=== PATIENT | female | born 1995 | race Caucasian/White ===

== ENCOUNTER 2016-10-05 19:36 | Emergency (ER) | payer SELFPAY ==
[~2016-10-05 19:36] MED LIST: ACET500C5 PO; CALC-600 PO; CEPH-443 PO; IRON18TA PO; PREN1TAB49 PO; SSD1C20 TOP
== END 2016-10-05 19:59 | disposition left against medical advice (07) ==
LOC: E/R 19:36
DX: Z53.21 Procedure and treatment not carried out due to patient leaving prior to being seen by health care provider (principal)

== ENCOUNTER 2016-10-05 19:54 | Outpatient (CLI) | payer MEDICAID ==
[~2016-10-05] VITALS: Ht 149.9 cm; Wt 61.0 kg
[2016-10-05 20:02] VITALS: Ht 149.9 cm; Wt 61.0 kg
[2016-10-05 20:30] VITALS: BP 106/54; PULSE 86; RESP 18
[2016-10-05 21:14] LABS: ADD UMIC YES; URINE BILIRUBIN (Dip) NEGATIVE (NEGATIVE); URINE BLOOD (Dip) NEGATIVE (NEGATIVE); URINE COLOR LT. YELLOW (YELLOW); URINE GLUCOSE (Dip) NEGATIVE (NEGATIVE); URINE KETONES (Dip) NEGATIVE (NEGATIVE); URINE LEUKOCYTE ESTERASE (Dip) 1+ (NEGATIVE); URINE NITRITE (Dip) NEGATIVE (NEGATIVE); URINE TOTAL PROTEIN (Dip) NEGATIVE (NEGATIVE); URINE UROBILINOGEN (Dip) 0.2 E.U./dL (0.1-1.0)
--- NOTE | 2016-10-05 21:24 | RADRPT ---
PROCEDURE: US OB and ultrasound of the cervix. CLINICAL INDICATION: Size and dates , labor TECHNIQUE: Multiple sonographic images of the pelvis and gravid uterus were obtained. The images were reviewed on a PACS workstation. In addition transvaginal images of the cervix were obtained. COMPARISON: 08/30/2016 FINDINGS: The cervix is closed with a length of 5.6 cm. There is a single viable intrauterine gestation. Cardiac activity is present with 142 beats per min sara. There is a breech presentation. The placenta is posterior. There is no evidence of partial placenta previa. The placenta edge is se en 2 mm away from the cervix. Measurements were made in order to determine age. The results are as follows: BPD =4.6 cm HC =16.9 cm AC =15.4 cm FL =3.1 cm Estimated gestational age of approximately 20 weeks and 0 days based on ultrasound measurements. Clinical age: 19 weeks and 4 days. The estimated date of delivery is 02/22/17, based on ultrasound measurements. The EFW = 329 g, 73.6%, based on LMP age. RPTAT: AA IMPRESSION: Single viable intrauterine gestation of approximately 20 weeks and 0 days based on ultrasound measu rements. Posterior placenta with partial placenta previa. .Seth Fabian MD, Date Time Electronically viewed and signed by .Seth Fabian MD, MD on 10/05/2016 21:23 .S/
[2016-10-05 21:31] LABS: BACTERIA,URINE MODERATE; SQUAMOUS EPITHELIAL CELL,UR MANY; URINE RBCS 0-2 /HPF (0)
--- NOTE | 2016-10-05 22:18 | TRIAGE ---
OB Triage Datetime Report Generated by CPN: 10/05/2016 22:18 Datetime: 10/05/2016 20:35 Time of Arrival: 10/05/2016 19:52 EGA: 19.4 Arrived By: Wheelchair Arrived From: Home Chief Complaint: w/ c/o "constant lower abdominal cramping" today and hx UTI 2 wks ago Movement: Present Contractions: Irregular Time Contractions Began: 10/05/2016 14:00 Contractions: constant Rupture of Membranes: Denies Vaginal Bleeding: None Vaginal Discharge: Denies Recent Sexual Intercouse: Denies Abdominal Trauma: Not Applicable Patient Complaints: Cramping Time Provider Notified: 10/05/2016 20:30 Provider Notified: Dr Landaverde Initial Plan: EFM,UA,EFW,CVL Datetime: 10/05/2016 20:30 Stage of : OB Triage Labor Evaluation Frequency: 0 Monitor Mode: External Resting Tone [place]: Relaxed Datetime: 10/05/2016 20:09 Maternal Assessment Level of Consciousness: Fully Conscious Headache: Denies Blurred Vision: No Nausea/Vomiting: Denies RUQ Epigastric Pain: Denies Facial Edema: None Labor Evaluation Frequency: placed Monitor Mode: External Resting Tone [place]: Relaxed Heart Rate Monitor Mode: Doppler Comments: FHT 145 Pain Assessment Pain Scale: 7 Pain Presence: Intermittent Pain Type: Cramping Pain Location: Abdomen Datetime: 10/05/2016 20:00 Vaginal Exam Membrane Status: Intact
--- NOTE | 2016-10-05 23:59 | QN ---
Documentation Comment 20-year-old with IUP at 19 weeks and 4 days with care with Dr. Gray presented with complaining of cramping. She also complaining of lower abdominal and low back pain. Denies any leaking of fluid, vaginal bleeding, denies any dysuria fever or chills. GA: A&O, NAD Abdomen: soft, Non tender, Gravid. No CVA Extremities: no calf tenderness, no click, no edema Ultrasound: GA 19 weeks adn 4 days, EFW: 73 % 2 mm marginal placenta. PROCEDURE: US OB and ultrasound of the cervix. CLINICAL INDICATION: Size and dates , labor TECHNIQUE: Multiple sonographic images of the pelvis and gravid uterus were obtained. The images were reviewed on a PACS workstation. In addition transvaginal images of the cervix were obtained. COMPARISON: 08/30/2016 FINDINGS: The cervix is closed with a length of 5.6 cm. There is a single viable intrauterine gestation. Cardiac activity is present with 142 beats per minute. There is a breech presentation. The placenta is posterior. There is no evidence of partial placenta previa. The placenta edge is seen 2 mm away from the cervix. Measurements were made in order to determine age. The results are as follows: BPD = 4.6 cm HC = 16.9 cm AC = 15.4 cm FL = 3.1 cm Estimated gestational age of approximately 20 weeks and 0 days based on ultrasound measurements. Clinical age: 19 weeks and 4 days. The estimated date of delivery is 02/22/17, based on ultrasound measurements. The EFW = 329 g, 73.6%, based on LMP age. RPTAT: AA IMPRESSION: Single viable intrauterine gestation of approximately 20 weeks and 0 days based on ultrasound measurements. Posterior placenta with partial placenta previa. .Seth Fabian MD, MD Date Time Electronically viewed and signed by .Seth Fabian MD, MD on 10/05/2016 21: 23 .S/ CC: CHRISTIN GIBBS MD Assessment: 1- IUP at 19 weeks and 4 days low back pain, likely musculoskeletal Cramps. due to dehydration. resolved Patient felt improvement. No evidence of PPROM or PTL DC home Follow up next day with her Ob clinic Continue hydration RTC if recurrence of symptoms or for any other concerns. CHRISTIN GIBBS MD Oct 05, 2016 23:59
== END 2016-10-05 22:12 | disposition home or self-care (01) ==
LOC: OBT 19:54 → L-D 19:56 → OBT 22:12
PROVIDERS: ATTEND Obstetrics & Gynecology
DX: O26.892 Other specified pregnancy related conditions, second trimester (principal); M54.5 Low back pain; R10.30 Lower abdominal pain, unspecified; E86.0 Dehydration; Z3A.19 19 weeks gestation of pregnancy
CPT/HCPCS: 76815; 76817; 81001; Z7500; 81003; G0463

== ENCOUNTER 2016-12-20 16:05 | Outpatient (CLI) | payer MEDICAID ==
[~2016-12-20] VITALS: Ht 149.9 cm; Wt 69.9 kg
[~2016-12-20 16:05] MED LIST changes: -ACET500C5 PO; -CEPH-443 PO; -SSD1C20 TOP
[2016-12-20 16:19] VITALS: Ht 149.9 cm; Wt 69.9 kg
--- NOTE | 2016-12-20 17:17 | RADRPT ---
PROCEDURE: US biophysical profile and transvaginal sonography of the cervix. CLINICAL INDICATION: Vaginal bleeding. TECHNIQUE: Multiple sonographic images of the uterus were obtained. Transvaginal sonograp hy of the cervix was also performed. The images were reviewed on a PACS workstation. COMPARISON: No prior studies are available for comparison. FINDINGS: There is a single live intrauterine gestation. heart rate is 146 beats per minute. The position is cephalic. The placenta is fundal grade 1 with no abruption or previa. The SKYLAR is 12.7 cm. (Normal = 5-20 cm.) Transvaginal ultrasound demonstrate cervical length of 4.0 cm. Breathing Movement: 2 Gross Body Movement: 2 Tone: 2 Qualitative Amniotic Fluid Volume: 2 TOTAL: 8 IMPRESSION: 1. The biophysical score is 8/8. 2. Cervical length is 4.0 cm. RPTAT: QQ .Jarad Ewing MD, MD Date Time Electronically viewed and signed by .Jarad Ewing MD, on 12/20/2016 17:17 .R/
[2016-12-20 17:22] LABS: ADD SCAN DIFF NO
[2016-12-20 17:24] LABS: ABNORMAL IP MESSAGE 1; BASOPHIL # 0.1 10^3/ul (0.0-0.1); BASOPHILS % 0.4 % (0.0-2.0); EOSINOPHILS # 0.2 10^3/ul (0.0-0.5); EOSINOPHILS % 1.4 % (0.0-7.0); HEMOGLOBIN 12.5 g/dl (12.0-16.0); LYMPHOCYTES # 2.9 10^3/ul (0.8-2.9); LYMPHOCYTES % 21.5 % (15.0-51.0); MEAN CORPUSCULAR HEMOGLOBIN 31.2 pg (29.0-33.0); MEAN CORPUSCULAR HGB CONC 32.9 g/dl (32.0-37.0); MEAN CORPUSCULAR VOLUME 94.8 fl (82.0-101.0); MEAN PLATELET VOLUME 9.7 fl (7.4-10.4); MONOCYTE # 1.5 10^3/ul (0.3-0.9); MONOCYTES % 11.4 % (0.0-11.0); NEUTROPHIL # 8.2 10^3/ul (1.6-7.5); NEUTROPHILS % 61.4 % (39.0-77.0); PLATELET COUNT 292 10^3/UL (140-415); RED BLOOD COUNT 4.01 10^6/ul (4.20-5.40); RED CELL DISTRIBUTION WIDTH 14.2 % (11.5-14.5); WHITE BLOOD COUNT 13.3 10^3/ul (4.8-10.8)
[2016-12-20 17:27] LABS: ADD UMIC YES; URINE BILIRUBIN (Dip) NEGATIVE (NEGATIVE); URINE BLOOD (Dip) 2+ (NEGATIVE); URINE COLOR LT. YELLOW (YELLOW); URINE GLUCOSE (Dip) NEGATIVE (NEGATIVE); URINE KETONES (Dip) NEGATIVE (NEGATIVE); URINE LEUKOCYTE ESTERASE (Dip) 2+ (NEGATIVE); URINE NITRITE (Dip) NEGATIVE (NEGATIVE); URINE TOTAL PROTEIN (Dip) NEGATIVE (NEGATIVE); URINE UROBILINOGEN (Dip) 0.2 E.U./dL (0.1-1.0)
[2016-12-20 17:31] LABS: SQUAMOUS EPITHELIAL CELL,UR MANY
[2016-12-20 17:33] LABS: BACTERIA,URINE FEW; URINE RBCS 0-2 /HPF (0)
--- NOTE | 2016-12-20 18:14 | TRIAGE ---
OB Triage Datetime Report Generated by CPN: 12/20/2016 18:13 Datetime: 12/20/2016 16:20 Time of Arrival: 12/20/2016 16:20 EGA: 30.3 Arrived By: Ambulatory Arrived From: Home Chief Complaint: SPOTTING, CRAMPING Movement: Present Contractions: Irregular Time Contractions Began: 12/20/2016 15:00 Contractions: OCC Rupture of Membranes: Denies Vaginal Bleeding: Small Vaginal Discharge: Present Recent Sexual Intercouse: Denies Abdominal Trauma: Not Applicable Patient Complaints: Other Time Provider Notified: 12/20/2016 16:45 [facility] Initial Plan: CBC, UA, BPP, SKYLAR AND PLACENTA POSITION Datetime: 12/20/2016 16:17 Stage of : OB Triage Labor Evaluation Frequency: OCC Monitor Mode: External Quality: Mild Pattern: Normal: <= 5 Contractions in 10 Minutes Resting Tone [place]: Relaxed Heart Rate FHR Baseline Rate: 140 Monitor Mode: External US FHR Baseline Changes: No Baseline Change Variability: Moderate 6-25 bpm Accelerations: 15X15 Decelerations: None Category: Category I Pain Assessment Pain Scale: 3 Pain Presence: Intermittent Pain Type: Cramping Pain Location: Abdomen Pain Relief Measures: Comfort Measures Vaginal Exam Membrane Status: Intact Datetime: 10/05/2016 21:53 Stage of : OB Triage Labor Evaluation Frequency: 0 Monitor Mode: External Pattern: Normal: <= 5 Contractions in 10 Minutes Resting Tone [place]: Relaxed Datetime: 10/05/2016 21:29 Labor Evaluation Frequency: 0 Monitor Mode: External Pattern: Normal: <= 5 Contractions in 10 Minutes Resting Tone [place]: Relaxed Pain Assessment Pain Scale: 4 Pain Presence: Intermittent Pain Type: Cramping Pain Assessment Comments: Pt states pain less with PO fluids Datetime: 10/05/2016 20:35 EGA: 19.4
--- NOTE | 2016-12-20 19:00 | CONS ---
Date/Time of Note Date/Time of Note DATE: 12/20/16 TIME: 18:54 Consultation Date/Type/Reason Admit Date/Time December 20, 2016 OB triage consult This patient is a 21 years old 3 para 1 1, with 1 spontaneous vaginal delivery in the past. Her EDC is 02/22/2017 which makes her 30 weeks and 3 days. She came to triage area complaining of cramping and slight spotting On examination she is a well-developed well-nourished lady in second trimester her abdomen is soft No CVA tenderness. No abdominal tenderness No edema anywhere in her body Knee-jerk reflex are normal Her blood pressure 107/54 pulse rate 98. Her lab studies were basically normal except except 2+ blood and 2+ leukocyte E[place] but she did have a slightly pinkish this vaginal. Her hemoglobin 12.5 hematocrit 28 WBC was WBC was slightly elevated 13 point platelet 290 . An ultrasound study was performed and the result was a single live intrauterine gestation heart rate of 146, in vertex presentation, placenta was grade 1 no abruption no placenta previa. Her SKYLAR was 12.7 cm. Biophysical profile was reported 04/18 the. Cervical length was 4 cm With this positive finding on ultrasound and pelvic exam was performed the cervix was closed and long no true evidence of bleeding Laboratory Tests Test 12/20/16 17:00 White Blood Count 13.310^3/ul Red Blood Count 4.0110^6/ul Hemoglobin 12.5g/dl Hematocrit 38.0% Mean Corpuscular Volume 94.8fl Mean Corpuscular Hemoglobin 31.2pg Mean Corpuscular Hemoglobin Concent 32.9g/dl Red Cell Distribution Width 14.2% Platelet Count 41898^3/UL Mean Platelet Volume 9.7fl Neutrophils % 61.4% Lymphocytes % 21.5% Monocytes % 11.4% Eosinophils % 1.4% Basophils % 0.4% Nucleated Red Blood Cells % 0.0/100WBC Neutrophils # 8.210^3/ul Lymphocytes # 2.910^3/ul Monocytes # 1.510^3/ul Eosinophils # 0.210^3/ul Basophils # 0.110^3/ul Nucleated Red Blood Cells # 0.010^3/ul Urine Color LT. YELLOW Urine Clarity CLEAR Urine pH 6.5 Urine Specific [place] <=1.005 Urine Ketones NEGATIVE Urine Nitrite NEGATIVE Urine Bilirubin NEGATIVE Urine Urobilinogen 0.2 E.U./dL Urine Leukocyte Esterase 2+ Urine Microscopic RBC 0-2/HPF Urine Microscopic WBC 5-10/HPF Urine Squamous Epithelial Cells MANY Urine Bacteria FEW Urine Hemoglobin 2+ Urine Glucose NEGATIVE% Urine Total Protein NEGATIVE Constitutional: No chills, No diaphoresis, No disoriented, No febrile, No improved, No no complaints, No other, No poor po, No requiring IVF, No requiring O2 Eyes: No discharge, No no complaints, No other, No pain, No redness, No visual change ENT: No bleeding, No congestion, No discharge, No dysphagia, No no complaints, No other, No pain, No sore throat Respiratory: No cough, No no complaints, No other, No pain, No pleuritic pain, No shortness of breath, No sputum, No wheezing Cardiovascular: No chest pain, No edema, No lightheadedness, No no complaints, No orthopenea, No other, No palpitations, No paroxysmal nocturnal dyspnea Gastrointestinal: No blood, No constipation, No decreased appetite, No diarrhea , No flatus, No nausea, No no complaints, No pain, No passing stool, No vomiting Genitourinary: other (Cervix was closed and long), No bleeding, No discharge, No dysuria, No flank pain, No hematuria, No no complaints Musculoskeletal: No back pain, No bone/joint pain, No neck pain, No no complaints, No other, No restricted range of motion, No swelling Skin: No bruising, No erythema, No laceration, No no complaints, No other, No pruritis, No rash, No skin lesions Neurologic: other (Knee-jerk reflex was normal), No confusion, No dizziness, No focal-weakness, No headache, No no complaints , No seizure, No syncope Exam/Review of Systems Results Result Diagram: 12/20/16 1700 Results 24 hrs Laboratory Tests Test 12/20/16 17:00 White Blood Count 13.3 H Red Blood Count 4.01 L Hemoglobin 12.5 Hematocrit 38.0 Mean Corpuscular Volume 94.8 Mean Corpuscular Hemoglobin 31.2 Mean Corpuscular Hemoglobin Concent 32.9 Red Cell Distribution Width 14.2 Platelet Count 292 Mean Platelet Volume 9.7 Neutrophils % 61.4 Lymphocytes % 21.5 Monocytes % 11.4 H Eosinophils % 1.4 Basophils % 0.4 Nucleated Red Blood Cells % 0.0 Neutrophils # 8.2 H Lymphocytes # 2.9 Monocytes # 1.5 H Eosinophils # 0.2 Basophils # 0.1 Nucleated Red Blood Cells # 0.0 Urine Color LT. YELLOW Urine Clarity CLEAR Urine pH 6.5 Urine Specific [place] <=1.005 L Urine Ketones NEGATIVE Urine Nitrite NEGATIVE Urine Bilirubin NEGATIVE Urine Urobilinogen 0.2 E.U./dL Urine Leukocyte Esterase 2+ H Urine Microscopic RBC 0-2 Urine Microscopic WBC 5-10 Urine Squamous Epithelial Cells MANY Urine Bacteria FEW Urine Hemoglobin 2+ H Urine Glucose NEGATIVE Urine Total Protein NEGATIVE PINEDA POWELL MD Dec 20, 2016 19:00
== END 2016-12-20 16:10 | disposition home or self-care (01) ==
LOC: L-D 16:05 → OBT 16:05 → L-D 17:01
PROVIDERS: ATTEND Obstetrics & Gynecology
DX: O26.853 Spotting complicating pregnancy, third trimester (principal); O26.893 Other specified pregnancy related conditions, third trimester; R25.2 Cramp and spasm; Z3A.30 30 weeks gestation of pregnancy
CPT/HCPCS: 36415; 76817; 76818; 81001; 85025; Z7500; 81003; G0463

== ENCOUNTER 2017-01-04 12:39 | Outpatient (CLI) | payer MEDICAID ==
[~2017-01-04] VITALS: Ht 149.9 cm; Wt 72.7 kg
[~2017-01-04 12:39] MED LIST changes: +ACET500C5 PO; +CEPH-443 PO; +SSD1C20 TOP
[2017-01-04 12:59] VITALS: Ht 149.9 cm; Wt 72.7 kg
[2017-01-04 13:00] VITALS: BP 117/55; PULSE 100; RESP 18
[2017-01-04] MEDS ORDERED: TERBUTALINE 1 MG/ML INJ SC ONE (13:30)
[2017-01-04] MEDS ORDERED: LACTATED RINGER'S 500 ML IV ONE (13:30)
--- NOTE | 2017-01-04 13:49 | RADRPT ---
PROCEDURE: Limited obstetric ultrasound CLINICAL INDICATION: Pain , PTL TECHNIQUE: Multiple transverse and longitudinal grayscale images of the pelvis were obtained mike sabdominally and transvaginally.. COMPARISON: 12/20/16 FINDINGS: The cervix is closed with a length of 3.1 cm. There is a single viable intrauterine gestation. Cardiac activity is present with 144 beats per min [place]. There is a vertex presentation. The placenta is fundal. There is no evidence for an abruption or placenta previa. RPTAT: AA IMPRESSION: Cervix length measures 3.1 cm. No evidence of placenta previa. .Seth Fabian MD, MD Date Time Electronically viewed and signed by .Seth Fabian MD, on 01/04/2017 13:48 .S/
[2017-01-04 13:50] LABS: ADD UMIC YES; UR BILIRUBIN (Dip) NEGATIVE (NEGATIVE); UR BLOOD (Dip) NEGATIVE (NEGATIVE); UR CLARITY CLEAR (CLEAR); UR COLOR LT. YELLOW (YELLOW); UR GLUCOSE (Dip) NEGATIVE (NEGATIVE); UR KETONES (Dip) NEGATIVE (NEGATIVE); UR LEUKOCYTE ESTERASE (Dip) 1+ (NEGATIVE); UR NITRITE (Dip) NEGATIVE (NEGATIVE); UR TOTAL PROTEIN (Dip) NEGATIVE (NEGATIVE); UR UROBILINOGEN (Dip) 0.2 E.U./dL (0.1-1.0)
[2017-01-04 14:14] LABS: UR BACTERIA FEW
[2017-01-04] MEDS ORDERED: LACTATED RINGER'S 1,000 ML IV ONE (15:30)
[2017-01-04] MEDS ORDERED: ACETAMINOPHEN 325 MG TAB PO ONE (15:30)
--- NOTE | 2017-01-04 16:31 | TRIAGE ---
OB Triage Datetime Report Generated by CPN: 01/04/2017 16:31 Datetime: 01/04/2017 16:05 Stage of : OB Triage Datetime: 01/04/2017 15:57 Labor Evaluation Frequency: 2-8 Monitor Mode: External Duration (sec)2399: 60-80 Quality: Mild Pattern: Normal: <= 5 Contractions in 10 Minutes Resting Tone [place]: Relaxed Heart Rate FHR Baseline Rate: 140 Monitor Mode: External US FHR Baseline Changes: No Baseline Change Variability: Moderate 6-25 bpm Accelerations: 15X15 Decelerations: None Category: Category I Pain Assessment Pain Scale: 1 Pain Presence: Intermittent Pain Type: Contraction Pain Location: Abdomen Pain Relief Measures: Comfort Measures Datetime: 01/04/2017 15:51 Pain Assessment Pain Scale: 1 Pain Presence: Intermittent Pain Type: Contraction; Pressure Pain Location: Abdomen Pain Relief Measures: Pain Medication Given Datetime: 01/04/2017 15:10 Stage of : OB Triage Labor Evaluation Frequency: 2-6 Monitor Mode: External Duration (sec)2399: 60-80 Quality: Mild Pattern: Normal: <= 5 Contractions in 10 Minutes Resting Tone [place]: Relaxed Heart Rate FHR Baseline Rate: 145 Monitor Mode: External US FHR Baseline Changes: No Baseline Change Variability: Moderate 6-25 bpm Accelerations: 15X15 Decelerations: None Category: Category I Datetime: 01/04/2017 14:43 Monitor Mode: External US Datetime: 01/04/2017 14:10 Stage of : OB Triage Labor Evaluation Frequency: 1-4 Monitor Mode: External Duration (sec)2399: 60-80 Quality: Mild Pattern: Normal: <= 5 Contractions in 10 Minutes Resting Tone [place]: Relaxed Heart Rate FHR Baseline Rate: 145 Monitor Mode: External US FHR Baseline Changes: No Baseline Change Variability: Moderate 6-25 bpm Accelerations: 15X15 Decelerations: None Category: Category I Datetime: 01/04/2017 13:24 Labor Evaluation Frequency: 1-4 Monitor Mode: External Duration (sec)2399: 50-60 Quality: Mild Pattern: Normal: <= 5 Contractions in 10 Minutes Resting Tone [place]: Non Relaxed Heart Rate FHR Baseline Rate: 145 Monitor Mode: External US FHR Baseline Changes: No Baseline Change Variability: Moderate 6-25 bpm Accelerations: 15X15 Decelerations: None Category: Category I Pain Assessment Pain Scale: 4 Pain Presence: Intermittent Pain Type: Contraction; Pressure Pain Location: Abdomen Datetime: 01/04/2017 13:04 Assessment Type: Triage Maternal Assessment Level of Consciousness: Fully Conscious DTR's/Clonus: DTRs 2+; No Clonus Headache: Denies Blurred Vision: No Respiratory Effort: Unlabored; Regular Rhythm; Equal Expansion Breath Sounds, Left: Clear and Equal Breath Sounds, Right: Clear and Equal Nausea/Vomiting: Denies RUQ Epigastric Pain: Denies Lower Extremities Edema: Bilateral Lower Extremities Degree: 1+ Upper Extremities Edema: None Facial Edema: None Fall Risk Assessment History of Falling: (0) No Secondary Diagnosis: (0) No Ambulatory Aid: (0) Bedrest/Nurse Assist IV Therapy: (0) No Gait: (0) Normal/Bedrest/Immobile Mental Status: (0) Oriented to Own Ability Fall Score: 0 Fall Risk Score Definition: No Risk: No action required Datetime: 01/04/2017 12:45 Time of Arrival: 01/04/2017 12:40 EGA: 32.4 Arrived By: Wheelchair Arrived From: Emergency Dept Chief Complaint: CURRENT C/O ABDOMINAL PAIN SINCE O900; DENIES LEAKING OR BLEEDING Movement: Present Contractions: Irregular Time Contractions Began: 01/04/2017 09:00 Contractions: 4 Rupture of Membranes: Denies Vaginal Bleeding: None Vaginal Discharge: Denies Recent Sexual Intercouse: Denies Abdominal Trauma: Not Applicable Patient Complaints: Contractions Time Provider Notified: 01/04/2017 13:11 Provider Notified: Akhil Initial Plan: , CONTRACTION, V/S MONTIORING - Orders for Placenta Position/ CL; FFN; Terbutal ine, IV hydration Datetime: 01/04/2017 12:43 EGA: 30.6 Datetime: 12/20/2016 17:56 Assessment Type: Triage Maternal Assessment Level of Consciousness: Fully Conscious DTR's/Clonus: DTRs 2+; No Clonus Headache: Denies Blurred Vision: No Respiratory Effort: Unlabored; Regular Rhythm; Equal Expansion Breath Sounds, Left: Clear and Equal Breath Sounds, Right: Clear and Equal Nausea/Vomiting: Denies RUQ Epigastric Pain: Denies Lower Extremities Edema: Bilateral Lower Extremities Degree: Trace Upper Extremities Edema: None Degree: None Facial Edema: None Fall Risk Assessment History of Falling: (0) No Secondary Diagnosis: (0) No Ambulatory Aid: (0) Bedrest/Nurse Assist IV Therapy: (0) No Gait: (0) Normal/Bedrest/Immobile Mental Status: (0) Oriented to Own Ability Fall Score: 0 Fall Risk Score Definition: No Risk: No action required Datetime: 12/20/2016 16:20 EGA: 30.3 Datetime: 10/05/2016 20:35 EGA: 19.4
--- NOTE | 2017-01-04 17:46 | QN ---
Documentation Comment 21-year-old with IUP at 32 weeks and 4 days presented with complaint of pelvic pressure. care at [facility]. She denies any leaking of fluid, decreased movement or vaginal bleeding or any other complaint. Patient reports history of UTI twice in current . She denies any fever or chills. She denies any dysuria. 'Physical examination: General appearance: Alert and oriented 4 Patient appears to be in mild distress. Abdomen: Soft, gravid, nontender, no rebound tenderness, no guarding, no rigidity, fundal height consistent with gestational age Speculum examination: Cervix appears to be closed. fibronectin obtained. F11: Negative Cervical length 3.1 Ultrasound with no evidence of previa or abruption. UA: 1+ leukocyte NST: Category 1. Contractions initially every 2-3 minutes. Status post 1 dose of terbutaline and IV hydration resolved. She had contractions every 8-10 minutes was was not feeling after hydration and above treatment. PROCEDURE: Limited obstetric ultrasound CLINICAL INDICATION: Pain , PTL TECHNIQUE: Multiple transverse and longitudinal grayscale images of the pelvis were obtained transabdominally and transvaginally.. COMPARISON: 12/20/16 FINDINGS: The cervix is closed with a length of 3.1 cm. There is a single viable intrauterine gestation. Cardiac activity is present with 144 beats per minute. There is a vertex presentation. The placenta is fundal. There is no evidence for an abruption or placenta previa. RPTAT: AA IMPRESSION: Cervix length measures 3.1 cm. No evidence of placenta previa. Assessment: 1. IUP at 32 weeks and 4 days contraction with no evidence of labor. F-negative. Cervical length more than 3 cm. History of UTI 2. UA with evidence of leukocyte. Cannot rule out UTI. Urine was sent for culture. Discussed with the patient start treatment She will have a follow-up in 2 days with her OB clinic after discharge from triage for follow-up of urine culture. If culture negative she can stop antibiotics otherwise continuing hydration discussed with Tylenol 500 mg 4 times daily. She received a dose of Tylenol as well when she was in triage and reports significant improvement of her symptoms. She was comfortable at the time of discharge. labor precaution and kick count discussed. Follow-up in 1-2 days with her OB clinic recommended. Return to triage as needed worsening of the symptoms or any other new symptoms or any other concerns. Patient verbalized understanding. CHRISTIN GIBBS MD Jan 04, 2017 17:46
== END 2017-01-04 17:10 | disposition home or self-care (01) ==
LOC: OBT 12:39 → L-D 12:40 → OBT 17:10
PROVIDERS: ATTEND Obstetrics & Gynecology
DX: O26.893 Other specified pregnancy related conditions, third trimester (principal); O62.9 Abnormality of forces of labor, unspecified; R10.2 Pelvic and perineal pain; Z3A.32 32 weeks gestation of pregnancy; Z87.440 Personal history of urinary (tract) infections
CPT/HCPCS: 76815; 76817; 81001; 82731; 87086; 96360; 96361; 96372; J3105; J7120; Z7500; Z7610; 81003; G0463

== ENCOUNTER 2017-01-27 02:50 | Inpatient (IN) | payer MEDICAID ==
[~2017-01-27] VITALS: Ht 149.9 cm; Wt 77.0 kg
[~2017-01-27 02:50] MED LIST changes: -ACET500C5 PO; -CEPH-443 PO; -SSD1C20 TOP
[2017-01-27 03:26] VITALS: BP 110/56; PULSE 87; RESP 18
--- NOTE | 2017-01-27 03:55 | RADRPT ---
PROCEDURE: Biophysical profile. CLINICAL INDICATION: Pelvic pain. TECHNIQUE: Multiple sonographic images of the pelvis were obtained with transabdominal technique. COMPARISON: 01/04/2017. FINDINGS: There is a single living intrauterine gestation with the fetus in a vertex position. The placenta i s anterior in location, grade II. heart tones of 132 beats per minute are identified. There i s low amniotic fluid volume with an SKYLAR of 5.4 cm. There is no evidence of placental abruption. breathing movements = 2 Gross body movements = 2 tone = 2 Qualitative AFV = 0 IMPRESSION: Biophysical profile 6 out of 8. Borderline oligohydramnios with an SKYLAR of 5.4 cm. .Bruce Ivy MD, Date Time Electronically viewed and signed by .Bruce Ivy MD, MD on 01/27/2017 03:55 .T/
[2017-01-27] MEDS ORDERED: TERBUTALINE 1 MG/ML INJ SC PRN (04:00)
[2017-01-27 04:22] LABS: ADD SCAN DIFF NO
[2017-01-27 04:25] LABS: ADD UMIC YES; URINE BILIRUBIN (Dip) NEGATIVE (NEGATIVE); URINE BLOOD (Dip) 3+ (NEGATIVE); URINE COLOR LT. YELLOW (YELLOW); URINE GLUCOSE (Dip) NEGATIVE (NEGATIVE); URINE KETONES (Dip) NEGATIVE (NEGATIVE); URINE LEUKOCYTE ESTERASE (Dip) 2+ (NEGATIVE); URINE NITRITE (Dip) NEGATIVE (NEGATIVE); URINE TOTAL PROTEIN (Dip) NEGATIVE (NEGATIVE); URINE UROBILINOGEN (Dip) 0.2 E.U./dL (0.1-1.0)
[2017-01-27 04:27] LABS: BASOPHIL # 0.1 10^3/ul (0.0-0.1); BASOPHILS % 0.5 % (0.0-2.0); EOSINOPHILS # 0.2 10^3/ul (0.0-0.5); EOSINOPHILS % 1.6 % (0.0-7.0); HEMATOCRIT 37.7 % (37.0-47.0); HEMOGLOBIN 12.5 g/dl (12.0-16.0); LYMPHOCYTES # 2.8 10^3/ul (0.8-2.9); LYMPHOCYTES % 25.5 % (15.0-51.0); MEAN CORPUSCULAR HEMOGLOBIN 31.2 pg (29.0-33.0); MEAN CORPUSCULAR HGB CONC 33.2 g/dl (32.0-37.0); MEAN PLATELET VOLUME 9.6 fl (7.4-10.4); MONOCYTE # 1.1 10^3/ul (0.3-0.9); MONOCYTES % 10.3 % (0.0-11.0); NEUTROPHIL # 6.6 10^3/ul (1.6-7.5); NEUTROPHILS % 60.1 % (39.0-77.0); PLATELET COUNT 301 10^3/UL (140-415); RED BLOOD COUNT 4.01 10^6/ul (4.20-5.40); RED CELL DISTRIBUTION WIDTH 14.4 % (11.5-14.5)
[2017-01-27 04:44] LABS: BACTERIA,URINE FEW; SQUAMOUS EPITHELIAL CELL,UR FEW
[2017-01-27] MEDS ORDERED: DOCUSATE SODIUM 100 MG CAP PO PRN (05:00)
--- NOTE | 2017-01-27 05:25 | HP ---
Date/Time of Note Date/Time of Note DATE: 01/27/17 TIME: 05:13 OB - History Hx of Present Free Text/Dictation 21 y.o A1 who had normal vaginal delivery with previous presented to triage with c/o vaginal bleeding which started 4hrs prior to visit also c/o back pain ,pain level 3/10 had u/s for placenta location and BPP, revealed SKYLAR was only 5.4 patient denies any leakage of fluid or wetness at all denies any sexual activities prior to experience vaginal bleeding due to oligohydramnios,plan to admit to antepartum unit with oral hydration and recheck the SKYLAR Chief Complaint: oligohydramnios Estimated Due Date: Feb 15, 2017 : 3 Para: 1 Spontaneous : 0 Therapeutic : 1 Care: Good Care Ultrasounds: Normal mid trimester US Medical Complications: None Past Family/Social History * Past Medical, Surgical, Family and Obstetric Histories reviewed from chart. OB Admission Exam Vital Signs Vital Signs Vital Signs Date Time Temp Pulse Resp B/P Pulse Ox O2 Delivery O2 Flow Rate FiO2 01/27/17 03:26 98.2 87 18 110/56 Room Air Physical Exam HEENT: WNL Heart: Rhythm Normal Lungs: Clear, Equal Abdomen: WNL Extremities: Normal Reflexes: Normal Cervical Dilatation: other Effacement: Other Station: Other Membranes: Intact Amniotic Fluid: Unevaluable Heart Rate: 130's Accelerations: Accelerations Present Decelerations: No Decelerations Contractions on Admission: 6-10 Minutes Apart Intensity: Mild Last 72 hours Lab Results CBC & BMP 01/27/17 02:53 OB Assessment/Plan Reason for admission: labor, vaginal bleeding Other Assessment: [id number] oligohydramnios Other plan: po hydration 2liter repeat SKYLAR MEGHANN LYNN MD January 27, 2017 05:24
--- NOTE | 2017-01-27 06:10 | TRIAGE ---
OB Triage Datetime Report Generated by CPN: 01/27/2017 06:10 Datetime: 01/27/2017 05:39 Stage of : Labor Assessment Type: Admission Assessment Maternal Assessment Level of Consciousness: Fully Conscious DTR's/Clonus: DTRs 2+; No Clonus Headache: Denies Blurred Vision: No Respiratory Effort: Unlabored; Regular Rhythm; Equal Expansion Breath Sounds, Left: Clear and Equal Breath Sounds, Right: Clear and Equal Nausea/Vomiting: Denies RUQ Epigastric Pain: Denies Lower Extremities Edema: None Degree: None Upper Extremities Edema: None Degree: None Facial Edema: None Temperature Route: Oral Fall Risk Assessment History of Falling: (0) No Secondary Diagnosis: (0) No Ambulatory Aid: (0) Bedrest/Nurse Assist IV Therapy: (0) No Gait: (0) Normal/Bedrest/Immobile Mental Status: (0) Oriented to Own Ability Fall Score: 0 Fall Risk Score Definition: No Risk: No action required Pain Assessment Pain Scale: 0 Pain Presence: None/Denies Pain Type: N/A Pain Assessment Comments: pt denies feeling of any pain or UC's at this time Datetime: 01/27/2017 05:34 Stage of : Antepartum Datetime: 01/27/2017 05:00 Stage of : OB Triage Labor Evaluation Frequency: X4 Monitor Mode: External Duration (sec)2399: 40-60 Quality: Mild Resting Tone [place]: Relaxed Heart Rate FHR Baseline Rate: 125 Variability: Moderate 6-25 bpm Accelerations: 15X15 Decelerations: None Datetime: 01/27/2017 04:33 Vaginal Exam Dilatation (cms): 0.5 Effacement (%): 0 Station: -3 Exam By: M GAMBINO Vaginal Bleeding: Scant Cervix, Consistency: Firm Cervix, Position: Posterior Presentation 'A': Cephalic Datetime: 01/27/2017 04:27 Stage of : OB Triage Monitor Mode: External Monitor Mode: External US Datetime: 01/27/2017 04:01 Stage of : OB Triage Datetime: 01/27/2017 04:00 Stage of : OB Triage Labor Evaluation Frequency: 4-16 Monitor Mode: External Quality: Mild Resting Tone E[place]: Relaxed Heart Rate FHR Baseline Rate: 125 Monitor Mode: External US Variability: Moderate 6-25 bpm Accelerations: 15X15 Decelerations: None Category: Category I Datetime: 01/27/2017 03:30 Stage of : OB Triage Monitor Mode: External Quality: Mild Pattern: Normal: <= 5 Contractions in 10 Minutes Resting Tone E[place]: Relaxed Heart Rate FHR Baseline Rate: 125 Monitor Mode: External US FHR Baseline Changes: No Baseline Change Variability: Moderate 6-25 bpm Accelerations: 15X15 Decelerations: None Category: Category I Datetime: 01/27/2017 03:16 Maternal Assessment Level of Consciousness: Fully Conscious Headache: Denies Blurred Vision: No Nausea/Vomiting: Denies RUQ Epigastric Pain: Denies Facial Edema: None Heart Rate FHR Baseline Rate: 125 Monitor Mode: External US FHR Baseline Changes: No Baseline Change Category: Category I Pain Assessment Pain Scale: 3 Pain Presence: Intermittent Pain Type: Cramping; Pressure; Ache Pain Location: Abdomen; Back Datetime: 01/27/2017 03:15 Time of Arrival: 01/27/2017 02:45 EGA: 35.6 Arrived By: Wheelchair Arrived From: Home Chief Complaint: w/ hx bleeding to OB triage w/ c/o "bleeding when wipes" since 01/25 and mod amt this morning Movement: Present Contractions: Occasional Rupture of Membranes: Denies Vaginal Bleeding: Moderate Vaginal Discharge: Present Recent Sexual Intercouse: Denies Abdominal Trauma: Not Applicable Patient Complaints: Cramping; Back Pain; Dizziness Time Provider Notified: 01/27/2017 03:30 Provider Notified: Dr Gray Initial Plan: EFM, TERB, PO HYDRATION, CBC, UA, BPP, PLACENTA Datetime: 01/04/2017 13:04 Fall Score: 0 Fall Risk Score Definition: No Risk: No action required Datetime: 01/04/2017 12:45 EGA: 32.4 Additional Patient Complaints: Pt states having UTI twice during pregnacy Datetime: 01/04/2017 12:43 EGA: 30.6 Datetime: 12/20/2016 17:56 Fall Score: 0 Fall Risk Score Definition: No Risk: No action required Datetime: 12/20/2016 16:20 EGA: 30.3 Datetime: 10/05/2016 20:35 EGA: 19.4
[2017-01-27] MEDS ORDERED: MULTIVIT/MIN/FOLATE/IRON/PREN TAB PO SCH (09:00)
[2017-01-27] MEDS ORDERED: LACTATED RINGER'S 1,000 ML IV ONE (09:30)
[2017-01-27] MEDS ORDERED: LACTATED RINGER'S 1,000 ML IV SCH (10:30)
--- NOTE | 2017-01-27 11:07 | RADRPT ---
PROCEDURE: OB ultrasound for biophysical profile CLINICAL INDICATION: Low amniotic fluid index TECHNIQUE: Multiple sonographic images of the pelvis were obtained. Transabdominal view of the gr avid uterus are available for review. The images were reviewed on a PACS workstation. COMPARISON: 01/27/2017. FINDINGS: breathing movement = 2/2 tone = 2/2 motion = 2/2 Quantitative amniotic fluid volume = 2/2 SKYLAR = 10.0 cm Single live intrauterine with cardiac activity at 130 beats per minute. There is a anterior placenta without previa. IMPRESSION: 1. Single living intrauterine gestation in transverse position. 2. Biophysical profile = 8/8. 3. SKYLAR = 10.0 cm. RPTAT: AACC Physician Donna Date Time Electronically viewed and signed by Physician Donna on 01/27/2017 11:07 /
--- NOTE | 2017-01-27 16:38 | DS ---
DATE OF ADMISSION: 01/27/2017 DATE OF DISCHARGE: 01/27/2017 DISCHARGE DIAGNOSES: 1. Intrauterine at 35 and 6/7 weeks. 2. Borderline oligohydramnios, resolved. 3. False labor. HISTORY AND HOSPITAL COURSE: The patient is a 21-year-old G3, P1 who presented at 35 and 6/7 weeks complaining of some spotting. No leakage of fluid, good movement. The patient was closed. A FI at that point was almost 5.4. ____. The patient was admitted for observation and category 1 tra cing. The SKYLAR repeat after IV hydration and p.o. was 10.0. Patient has no contractions, again rabia gory 1 tracing, ____808. The patient was discharged home in stable condition. The patient was ins tructed to come back on Monday morning for NST and follow up with her ENGINEERING ASSOCIATE early next week. ER pr ecautions given. Patient stable upon discharge. Dictated By: KAIA ALVAREZ MD /NTS Conf#: [id number] DID#: [id number]
== END 2017-01-27 16:59 | disposition home or self-care (01) | DRG 778 ==
LOC: OBT 02:50 → L-D 02:50 → OBG 04:15 → OBT 04:15
PROVIDERS: ADMIT Obstetrics & Gynecology; ATTEND Obstetrics & Gynecology
DX: O60.03 Preterm labor without delivery, third trimester (principal); O41.03X0 Oligohydramnios, third trimester, not applicable or unspecified; O46.93 Antepartum hemorrhage, unspecified, third trimester; Z3A.35 35 weeks gestation of pregnancy
CPT/HCPCS: 36415; 76818; 81001; 81003; 85025; 96360; 96361; 96372; G0463; J3105; J7120

== ENCOUNTER 2017-01-30 18:56 | Outpatient (CLI) | payer OTHER, MEDICAID ==
[~2017-01-30] VITALS: Ht 154.9 cm; Wt 73.5 kg
[2017-01-30 19:48] VITALS: Ht 154.9 cm; Wt 73.5 kg
[2017-01-30 19:49] VITALS: BP 115/73; PULSE 101; RESP 18
--- NOTE | 2017-01-30 20:42 | RADRPT ---
PROCEDURE: OB ultrasound CLINICAL INDICATION: . OB ultrasound with fluid volume assessment. History of low amnion ic fluid index TECHNIQUE: Sonographic evaluation to assess the amniotic fluid volume was performed. Transabdomin al imaging of the gravid uterus was performed. COMPARISON: 01/27/2017 FINDINGS: The amniotic fluid index equals approximately 10.1 cm. heart rate: 146 Beats per minute. Presentation: Breech Placenta is fundal - anterior without evidence of previa or abruption. IMPRESSION: Amniotic fluid index equals 10.1 cm, normal. Previously 10.0 cm. Breech presentation. RPTAT: AADD .Josse Pierson MD, MD Date Time Electronically viewed and signed by .Josse Pierson MD, on 01/30/2017 20:42 .B/
--- NOTE | 2017-01-30 21:20 | PN ---
Date/Time of Note Date/Time of Note DATE: 01/30/17 TIME: 21:17 OB Subjective Subjective Subjective 21 Year-old with SIUP at 36 2/7 weeks presents for NST and SKYLAR for h/o oligo during current . She was admitted and received IVF. She discharged with SKYLAR of 10. She states good movement. She denies nausea, vomiting, shortness of breath, chest pain, and abdominal pain between contractions, headache, visual changes, vaginal bleeding or LOF. OB Objective Objective Objective Physical Exam: General: Patient appears well, alert and oriented, NAD, appropriate mood and affect ABD: gravid, soft, non-tender. Back: No CVA tenderness (B/L) LE: No clubbing, cyanosis, edema, thigh or calf tenderness bilaterally FHT: 135 bpm , moderate variability with acceleration, no deceleration-category I OB Assessment/Plan Other plan: 21 Year-old with SIUP at 36 2/7 weeks presents for NST and SKYLAR - FHR: No sign of metabolic acidosis- Category I - Continuous EFM, toco - Contractions: None. - Reactive NST. SKYLAR: 10.1 - Symptoms and sign of labor, preeclampsia, kick count discussed with patient, she voiced understanding. All of her questions answered. - Patient was discharged home in stable condition with the appropriate discharge instructions provided. I would like patient to have close follow-up with her primary physician or outpatient clinic in 1-2 days or return to the ER for worsening symptoms or any other urgent concerns. JOSE DORANTES January 30, 2017 21:20
--- NOTE | 2017-01-30 22:18 | TRIAGE ---
OB Triage Datetime Report Generated by CPN: 01/30/2017 22:18 Datetime: 01/30/2017 21:21 Stage of : OB Triage Datetime: 01/30/2017 21:16 Stage of : OB Triage Labor Evaluation Frequency: 0 Monitor Mode: External Resting Tone [place]: Relaxed Heart Rate FHR Baseline Rate: 125 Monitor Mode: External US Variability: Moderate 6-25 bpm Accelerations: 15X15 Decelerations: None Category: Category I Comments: NST REACTIVE. CAT 1 TRACING Datetime: 01/30/2017 20:31 Monitor Mode: External Monitor Mode: External US Datetime: 01/30/2017 20:25 Stage of : OB Triage Monitor Mode: External Monitor Mode: External US Datetime: 01/30/2017 20:06 Stage of : OB Triage Datetime: 01/30/2017 20:05 Labor Evaluation Frequency: 0 Monitor Mode: External Resting Tone [place]: Relaxed Heart Rate FHR Baseline Rate: 135 Monitor Mode: External US Variability: Moderate 6-25 bpm Accelerations: 15X15 Decelerations: None Category: Category I Datetime: 01/30/2017 20:03 Stage of : OB Triage Datetime: 01/30/2017 19:52 Stage of : OB Triage Datetime: 01/30/2017 19:36 Stage of : OB Triage Assessment Type: Triage Maternal Assessment Level of Consciousness: Fully Conscious DTR's/Clonus: DTRs 2+; No Clonus Headache: Denies Blurred Vision: No Respiratory Effort: Unlabored Breath Sounds, Left: Clear and Equal Breath Sounds, Right: Clear and Equal Nausea/Vomiting: Denies RUQ Epigastric Pain: Denies Lower Extremities Edema: None Degree: None Upper Extremities Edema: None Degree: None Facial Edema: None Fall Risk Assessment History of Falling: (0) No Secondary Diagnosis: (0) No Ambulatory Aid: (0) Bedrest/Nurse Assist IV Therapy: (0) No Gait: (0) Normal/Bedrest/Immobile Mental Status: (0) Oriented to Own Ability Fall Score: 0 Fall Risk Score Definition: No Risk: No action required Datetime: 01/30/2017 19:34 Time of Arrival: 01/30/2017 18:56 EGA: 36.2 Arrived By: Ambulatory Arrived From: Home Chief Complaint: F/U NST, SKYLAR rt low fluid Movement: Present Contractions: Denies/Absent Rupture of Membranes: Denies Vaginal Bleeding: None Vaginal Discharge: Denies Recent Sexual Intercouse: Denies Abdominal Trauma: Not Applicable Patient Complaints: Other Initial Plan: VS, EFM, NST, SKYLAR Datetime: 01/30/2017 19:32 Monitor Mode: External US Datetime: 01/30/2017 19:15 Monitor Mode: External Monitor Mode: External US Datetime: 01/27/2017 15:21 Maternal Assessment Level of Consciousness: Fully Conscious Headache: Denies Blurred Vision: No Nausea/Vomiting: Denies Resting Tone [place]: Relaxed Contraction Comments: rare Pain Assessment Pain Presence: None/Denies Datetime: 01/27/2017 15:00 Stage of : Antepartum Labor Evaluation Frequency: occassional Monitor Mode: External Duration (sec)2399: 60 Quality: Mild Heart Rate FHR Baseline Rate: 135 Monitor Mode: External US Variability: Moderate 6-25 bpm Accelerations: 15X15 Decelerations: None Datetime: 01/27/2017 14:00 Stage of : Antepartum Labor Evaluation Frequency: occassional Monitor Mode: External Duration (sec)2399: 60 Quality: Mild Heart Rate FHR Baseline Rate: 135 Monitor Mode: External US Variability: Moderate 6-25 bpm Accelerations: 15X15 Decelerations: None Datetime: 01/27/2017 13:00 Stage of : Antepartum Labor Evaluation Frequency: occassional Monitor Mode: External Duration (sec)2399: 60 Quality: Mild Heart Rate FHR Baseline Rate: 135 Monitor Mode: External US Variability: Moderate 6-25 bpm Accelerations: 15X15 Decelerations: None Datetime: 01/27/2017 12:17 Maternal Assessment Level of Consciousness: Fully Conscious Headache: Denies Blurred Vision: No Nausea/Vomiting: Denies Labor Evaluation Frequency: 0/hr Monitor Mode: External Contraction Comments: pt. denies Heart Rate FHR Baseline Rate: 135 Monitor Mode: External US Variability: Moderate 6-25 bpm Accelerations: 15X15 Decelerations: None Category: Category I Pain Assessment Pain Presence: None/Denies Datetime: 01/27/2017 11:00 Stage of : Antepartum Labor Evaluation Frequency: 0/hr Monitor Mode: External Resting Tone [place]: Relaxed Heart Rate FHR Baseline Rate: 135 Monitor Mode: External US Variability: Moderate 6-25 bpm Accelerations: 15X15 Decelerations: None Datetime: 01/27/2017 10:28 Stage of : Antepartum Datetime: 01/27/2017 10:26 Stage of : Antepartum Maternal Assessment Level of Consciousness: Fully Conscious Headache: Denies Blurred Vision: No Nausea/Vomiting: Denies Resting Tone [place]: Relaxed Pain Assessment Pain Presence: None/Denies Datetime: 01/27/2017 10:00 Labor Evaluation Frequency: 0/hr Monitor Mode: External Quality: Mild Resting Tone [place]: Relaxed Heart Rate FHR Baseline Rate: 140 Monitor Mode: External US Variability: Moderate 6-25 bpm Accelerations: 15X15 Decelerations: None Category: Category I Datetime: 01/27/2017 08:04 Stage of : Antepartum Assessment Type: Admission Assessment Maternal Assessment Level of Consciousness: Fully Conscious Maternal Assessment Level of Consciousness: Fully Conscious Headache: Denies Blurred Vision: No Respiratory Effort: Unlabored; Regular Rhythm; Equal Expansion Breath Sounds, Left: Clear and Equal Breath Sounds, Right: Clear and Equal Nausea/Vomiting: Denies Nausea/Vomiting: Denies RUQ Epigastric Pain: Denies RUQ Epigastric Pain: Denies Lower Extremities Edema: None Degree: None Upper Extremities Edema: None Degree: None Facial Edema: None Temperature Route: Oral Fall Risk Assessment History of Falling: (0) No Secondary Diagnosis: (0) No Ambulatory Aid: (0) Bedrest/Nurse Assist IV Therapy: (0) No Gait: (0) Normal/Bedrest/Immobile Mental Status: (0) Oriented to Own Ability Fall Score: 0 Fall Risk Score Definition: No Risk: No action required Monitor Mode: External US Pain Assessment Pain Presence: None/Denies Vaginal Exam Membrane Status: Intact Vaginal Bleeding: None Datetime: 01/27/2017 08:01 Monitor Mode: Palpation Resting Tone [place]: Relaxed Heart Rate FHR Baseline Rate: 140 Variability: Moderate 6-25 bpm Accelerations: 15X15 Datetime: 01/27/2017 07:00 Stage of : Antepartum Labor Evaluation Frequency: OCC Monitor Mode: External Duration (sec)2399: 60-90 Quality: Mild Resting Tone [place]: Relaxed Contraction Comments: IRRITABILITY NOTED Heart Rate FHR Baseline Rate: 130 Monitor Mode: External US Variability: Moderate 6-25 bpm Accelerations: 15X15 Decelerations: None Category: Category I Datetime: 01/27/2017 06:30 Monitor Mode: Palpation Resting Tone [place]: Relaxed Monitor Mode: External US Datetime: 01/27/2017 06:00 Stage of : Antepartum Labor Evaluation Frequency: 0 Monitor Mode: External Resting Tone [place]: Relaxed Contraction Comments: IRRITABILITY NOTED; STRIP REVIEW FROM [id number] Heart Rate FHR Baseline Rate: 140 Monitor Mode: External US Variability: Moderate 6-25 bpm Accelerations: 15X15 Decelerations: None Category: Category I Comments: STRIP REVIEW FROM [id number] Datetime: 01/27/2017 05:39 Fall Score: 0 Fall Risk Score Definition: No Risk: No action required Datetime: 01/27/2017 03:15 EGA: 35.6 Datetime: 01/04/2017 13:04 Fall Score: 0 Fall Risk Score Definition: No Risk: No action required Datetime: 01/04/2017 12:45 EGA: 32.4 Datetime: 01/04/2017 12:43 EGA: 30.6 Datetime: 12/20/2016 17:56 Fall Score: 0 Fall Risk Score Definition: No Risk: No action required Datetime: 12/20/2016 16:20 EGA: 30.3 Datetime: 10/05/2016 20:35 EGA: 19.4
== END 2017-01-30 21:30 | disposition home or self-care (01) ==
LOC: L-D 18:56 → OBT 18:56 → L-D 18:58 → OBT 21:30
PROVIDERS: ATTEND Obstetrics & Gynecology
DX: O26.893 Other specified pregnancy related conditions, third trimester (principal); Z3A.36 36 weeks gestation of pregnancy
CPT/HCPCS: 76816; G0463

== ENCOUNTER 2017-02-06 20:59 | Inpatient (IN) | payer OTHER, MEDICAID ==
[~2017-02-06] VITALS: Ht 149.9 cm; Wt 76.8 kg
[2017-02-06 21:27] VITALS: BP 111/59; PULSE 94; RESP 18; Ht 149.9 cm; Wt 76.8 kg
[2017-02-06] MEDS ORDERED: ACETAMINOPHEN 500 MG TAB PO STA (21:42)
--- NOTE | 2017-02-06 21:46 | PN ---
Date/Time of Note Date/Time of Note DATE: 02/06/17 TIME: 21:43 OB Subjective Subjective Subjective Patient is a 21-year-old 3 para 1 at 37+2 weeks of gestation who presents with decreased movement She reports having placenta previa during this which has resolved. She does not report any vaginal bleeding at this time, no leaking fluid, no contractions She also states that her most recent ultrasound indicated breech presentation OB Objective HEENT: WNL Heart: Rhythm Normal Lungs: Clear, Equal Abdomen: WNL Extremities: Normal Reflexes: Normal Heart Rate: 140's Accelerations: Accelerations Present Decelerations: No Decelerations Contractions on Admission: None OB Assessment/Plan Other Assessment: 37+2 weeks of gestation with decreased movement Other plan: NST and OB ultrasound including BPP and SKYLAR, presentation and placenta presentation KRYSTEN CABALLERO MD February 06, 2017 21:46
--- NOTE | 2017-02-06 22:15 | HP ---
Date/Time of Note Date/Time of Note DATE: 02/06/17 TIME: 22:11 OB - History Hx of Present Free Text/Dictation Patient is a 21-year-old 3 para 1 at 37+2 weeks of gestation who presents with decreased movement She reports having placenta previa during this which has resolved. She does not report any vaginal bleeding at this time, no leaking fluid, no contractions She also states that her most recent ultrasound indicated breech presentation Abnormal Ultrasound Findings: OB ultrasound january 1705/2017 indicating breech presentation with SKYLAR of 2.9 biophysical profile of 6 out of 8 Past Family/Social History * Past Medical, Surgical, Family and Obstetric Histories reviewed from chart. OB Admission Exam Vital Signs Vital Signs Vital Signs Date Time Temp Pulse Resp B/P Pulse Ox O2 Delivery O2 Flow Rate FiO2 02/06/17 21:27 98.2 94 18 111/59 Room Air Physical Exam HEENT: WNL Heart: Rhythm Normal Lungs: Clear, Equal Abdomen: WNL Extremities: Normal Reflexes: Normal Heart Rate: 140's Accelerations: Accelerations Present Decelerations: No Decelerations Contractions on Admission: < 5 Minutes Apart OB Assessment/Plan Other Assessment: 37+2 weeks of gestation with breech presentation, positive contractions and decreased SKYLAR of 2.9 cm Other plan: Admit to labor and delivery Plan for primary low transverse for breech presentation Patient was counseled regarding all the benefits and risks of the surgery including but not limited to infection, bleeding which may require blood transfusion, trauma to other organs including bladder and bowel Patient understands the planned surgery and agrees to proceed All her questions were answered and informed written consent was obtained KRYSTEN CABALLERO MD February 06, 2017 22:15
[2017-02-06] MEDS ORDERED: OXYTOCIN 30 UNITS/LR 500 ML IV SCH (22:30)
[2017-02-06] MEDS ORDERED: CARBOPROST 250 MCG INJ IM PRN (22:30)
[2017-02-06] MEDS ORDERED: CEFAZOLIN 2 GM/50 ML (PMX) 50 ML IV SCH (22:30)
[2017-02-06] MEDS ORDERED: OXYTOCIN 30 UNITS/LR 500 ML IV PRN (22:30)
[2017-02-06] MEDS ORDERED: METHYLERGONOVINE 0.2 MG INJ IM PRN (22:30)
[2017-02-06] MEDS ORDERED: MISOPROSTOL 200 MCG TAB PR PRN (22:30)
[2017-02-06 22:34] LABS: ADD SCAN DIFF NO
[2017-02-06 22:37] LABS: BASOPHILS % 0.3 % (0.0-2.0); EOSINOPHILS # 0.2 10^3/ul (0.0-0.5); EOSINOPHILS % 1.5 % (0.0-7.0); HEMATOCRIT 38.9 % (37.0-47.0); HEMOGLOBIN 12.8 g/dl (12.0-16.0); LYMPHOCYTES % 24.9 % (15.0-51.0); MEAN CORPUSCULAR HEMOGLOBIN 30.9 pg (29.0-33.0); MEAN CORPUSCULAR HGB CONC 32.9 g/dl (32.0-37.0); MEAN PLATELET VOLUME 9.9 fl (7.4-10.4); MONOCYTE # 1.3 10^3/ul (0.3-0.9); MONOCYTES % 10.6 % (0.0-11.0); NEUTROPHIL # 7.1 10^3/ul (1.6-7.5); NEUTROPHILS % 60.2 % (39.0-77.0); PLATELET COUNT 285 10^3/UL (140-415); RED BLOOD COUNT 4.14 10^6/ul (4.20-5.40); RED CELL DISTRIBUTION WIDTH 14.7 % (11.5-14.5); WHITE BLOOD COUNT 11.9 10^3/ul (4.8-10.8)
[2017-02-06] MEDS: LACTATED RINGER'S 1,000 ML IV SCH (22:44)
[2017-02-06 22:48] LABS: INR 0.96; PROTIME 12.8 Sec (12.2-14.2)
[2017-02-06 22:49] LABS: PARTIAL THROMBOPLASTIN TIME 24.7 Sec (25.0-35.0)
[2017-02-06] MEDS ORDERED: METOCLOPRAMIDE 10 MG INJ ONE (22:51)
[2017-02-06] MEDS ORDERED: ONDANSETRON 4 MG INJ ONE (22:51)
[2017-02-06] MEDS ORDERED: KETOROLAC 30 MG INJ ONE (22:51)
[2017-02-06] MEDS ORDERED: morphine SULFATE/PF (10 MG/10 ML) INJ ONE (22:51)
[2017-02-06] MEDS ORDERED: OXYTOCIN 10 UNIT INJ ONE (22:51)
[2017-02-06] MEDS ORDERED: PHENYLephrine (100 MCG/ML) 5ML SYG ONE (22:51)
[2017-02-06] MEDS ORDERED: DEXAMETHASONE 4 MG/ML 1 ML INJ ONE (22:51)
[2017-02-06] MEDS ORDERED: ONDANSETRON 4 MG INJ IV PRN (23:00)
[2017-02-06] MEDS ORDERED: CITRIC ACID/SODIUM CITRATE 15 ML CUP PO ONE (23:00)
[2017-02-06] MEDS ORDERED: METOCLOPRAMIDE 10 MG INJ IV ONE (23:00)
[2017-02-06 23:57] LABS: BARBITURATES Negative (NEGATIVE); BENZODIAZEPINES Negative (NEGATIVE); CANNABINOIDS Negative (NEGATIVE); COCAINE Negative (NEGATIVE); OPIATES Negative (NEGATIVE)
[2017-02-07] VITALS (7 sets, daily range): BP systolic 115–127; BP diastolic 58–63; PULSE 83–93; RESP 16–18
[2017-02-07] MEDS ORDERED: HYDROCODONE/APAP (5/325) TAB PO PRN
[2017-02-07] MEDS ORDERED: morphine 4 MG/ML VIAL IV PRN
[2017-02-07] MEDS ORDERED: DIPHENHYDRAMINE 50 MG INJ IV PRN
[2017-02-07] MEDS ORDERED: morphine 2 MG INJ IV PRN
[2017-02-07] MEDS ORDERED: NALBUPHINE HCL (10 MG/1 ML) INJ IV PRN
[2017-02-07] MEDS ORDERED: ACETAMINOPHEN 500 MG TAB PO PRN
[2017-02-07] MEDS ORDERED: HYDROmorphONE 1 MG/ML SYG IV PRN ×2
[2017-02-07] MEDS ORDERED: NALOXONE (0.4 MG/ML) INJ IV PRN
[2017-02-07] MEDS ORDERED: OXYTOCIN 10 UNIT INJ ONE ×2 (00:19)
--- NOTE | 2017-02-07 00:47 | OPR ---
Operative Report Planned Procedure Procedure date February 07, 2017 Procedure(s) Primary low transverse for breech presentation Performed by: KRYSTEN CABALLERO MD Assisting provider: DAMI SHEA Pre-procedure diagnosis 37+2 weeks of gestation with breech presentation, positive contractions and oligohydramnios SKYLAR of 2.9 cm Anesthesia Type: spinal Procedure Description Under satisfactory spinal anesthesia, the patient was prepped and draped and placed in a supine position, tilted to the left. Pfannenstiel incision was made , carried through the subcutaneous tissue. Bleeders brought under control with electrocautery. Fascia incised to the length of the incision. Rectus muscles from the fascia, divided midline. Peritoneum exposed, entered through a transverse incision. Exploration of abdomen revealed gravid uterus. Bladder flap was developed. Transverse incision was made in the lower segment of the uterus. Amniotic sac ruptured. Clear amniotic fluid noted. Fetus delivered from vertex presentation atraumatically. Nasal oropharyngeal suction was performed. The baby was handed to the team for immediate attention. The placenta was delivered manually intact. Uterine cavity was cleaned with wet sponge and drainage established. Uterus closed in 2 layers using 1 Vicryl suture in continuous locking fashion and a second layer imbricating fashion. Peritoneal cavity irrigated with warm saline. Sponge, needle and instrument count reported to be correct. Abdominal peritoneum closed with 2-0 Vicryl continuously. Rectus muscle approximated with 2-0 Vicryl. Fascia closed with 1 Vicryl in continuous fashion in 2 separate segments, and skin closed with noreen. Estimated blood loss 500 mL. Urine bag contained 100 mL of urine. Total IV fluids 1200 cc Patient taken to the recovery room in stable condition Post-Procedure Post-procedure diagnosis 37+2 weeks of gestation with vertex presentation, positive contractions and oligohydramnios SKYLAR of 2.9 cm Findings: Live Baby boy, Apgars 8 and 9, weight 8 lbs. 3 oz./3700 g, position vertex presentation, no nuchal cord. Complications: None Pt Condition post procedure: stable Disposition: PACU Physician Certification I, the undersigned physician, hereby certify that I have discussed the procedure described in this consent form with this patient (or the patient's legal hostess party sales representative), including: * The risk and benefits of the procedure; * Any adverse reactions that may reasonably be expected to occur; * Any alternative efficacious methods of treatment which may be medically viable ; * The potential problems that may occur during recuperation; * Potential for blood transfusion and associated risks/benefits; and * Any research or economic interest I may have regarding this treatment. I further certify that the patient/legally responsible person was encouraged to ask question and that all questions were answered. KRYSTEN CABALLERO MD February 07, 2017 00:47
[2017-02-07] MEDS ORDERED: CARBOPROST 250 MCG INJ IM PRN (02:00)
[2017-02-07] MEDS ORDERED: IBUPROFEN 800 MG TAB PO PRN (02:00)
[2017-02-07] MEDS ORDERED: OXYTOCIN 30 UNITS/LR 500 ML IV PRN (02:00)
[2017-02-07] MEDS ORDERED: LANOLIN 7 GM TUBE TOP PRN (02:00)
[2017-02-07] MEDS ORDERED: OXYCODONE/ACETAMINOPHEN (5/325) TAB PO PRN ×2 (02:00)
[2017-02-07] MEDS ORDERED: METHYLERGONOVINE 0.2 MG INJ IM PRN (02:00)
[2017-02-07] MEDS ORDERED: MISOPROSTOL 200 MCG TAB PR PRN (02:00)
[2017-02-07] MEDS: KETOROLAC 30 MG INJ IV PRN ×4 (02:43→23:17)
[2017-02-07] MEDS ORDERED: ONDANSETRON 4 MG INJ IV PRN ×2 (03:00)
[2017-02-07] MEDS: CEFAZOLIN 1 GM/50 ML (PMX) 50 ML IV SCH ×3 (03:49→18:56)
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
[2017-02-07] MEDS: LACTATED RINGER'S 1,000 ML IV SCH ×6 (06:35→22:02)
[2017-02-07 09:21] LABS: ADD SCAN DIFF NO
[2017-02-07 09:23] LABS: BASOPHILS % 0.2 % (0.0-2.0); HEMATOCRIT 38.9 % (37.0-47.0); HEMOGLOBIN 12.7 g/dl (12.0-16.0); LYMPHOCYTES # 1.1 10^3/ul (0.8-2.9); LYMPHOCYTES % 6.3 % (15.0-51.0); MEAN CORPUSCULAR HEMOGLOBIN 30.8 pg (29.0-33.0); MEAN CORPUSCULAR HGB CONC 32.6 g/dl (32.0-37.0); MEAN CORPUSCULAR VOLUME 94.2 fl (82.0-101.0); MONOCYTE # 0.8 10^3/ul (0.3-0.9); MONOCYTES % 4.6 % (0.0-11.0); NEUTROPHIL # 15.8 10^3/ul (1.6-7.5); NEUTROPHILS % 87.8 % (39.0-77.0); PLATELET COUNT 280 10^3/UL (140-415); RED BLOOD COUNT 4.13 10^6/ul (4.20-5.40); RED CELL DISTRIBUTION WIDTH 14.6 % (11.5-14.5)
[2017-02-07] MEDS: OXYTOCIN 30 UNITS/LR 500 ML IV SCH ×2 (10:12→14:17)
[2017-02-07] MEDS: SENNA/DOCUSATE NA (8.6MG/50MG) TAB PO SCH ×3 (11:17→21:21)
[2017-02-08 00:10] VITALS: BP 121/51; PULSE 76; RESP 18
[2017-02-08] MEDS: LACTATED RINGER'S 1,000 ML IV SCH ×2 (01:50→06:02)
[2017-02-08 08:10] VITALS: BP 116/56; PULSE 88; RESP 19
--- NOTE | 2017-02-08 08:37 | OPPN ---
Date/Time of Note Date/Time of Note DATE: 02/08/17 TIME: 08:37 Post-Anesthesia Notes Post-Anesthesia Note Last documented vital signs Vital Signs Date Time Temp Pulse Resp B/P Pulse Ox O2 Delivery O2 Flow Rate FiO2 02/08/17 00:10 98.4 76 18 121/51 02/07/17 23:06 97 21 02/07/17 19:45 Room Air Activity: WNL Respiratory function: WNL Cardiovascular function: WNL Mental status: Baseline Pain reasonably controlled: Yes Hydration appropriate: Yes Nausea/Vomiting absent: Yes NORMA GÓMEZ MD February 08, 2017 08:37
[2017-02-08] MEDS: SENNA/DOCUSATE NA (8.6MG/50MG) TAB PO SCH ×2 (08:51→21:14)
--- NOTE | 2017-02-08 14:38 | PN ---
Date/Time of Note Date/Time of Note DATE: 02/08/17 TIME: 14:35 OB Subjective Subjective Subjective Patient tolerated regular diet. Passed flatus. Breast-feeding. Ambulating. Denies any symptoms. OB Objective Objective Objective General appearance: Alert and oriented 4 patient does not appear to be in any acute distress. Abdomen: Soft, appropriate tenderness in the incision. Incision: Clean dry and intact. Normal bowel sounds audible. Lungs: Clear to auscultation bilaterally CV: RRR Extremities: No calf tenderness, no click no edema Breast: No breast engorgement, no fissure Hematology - 72 Hrs Test 02/06/17 22:20 02/07/17 08:10 White Blood Count 11.910^3/ul (4.8-10.8) H 18.010^3/ul (4.8-10.8) #H Red Blood Count 4.1410^6/ul (4.20-5.40) L 4.1310^6/ul (4.20-5.40) L Hemoglobin 12.8g/dl (12.0-16.0) 12.7g/dl (12.0-16.0) Hematocrit 38.9% (37.0-47.0) 38.9% (37.0-47.0) Mean Corpuscular Volume 94.0fl (82.0-101.0) 94.2fl (82.0-101.0) Mean Corpuscular Hemoglobin 30.9pg (29.0-33.0) 30.8pg (29.0-33.0) Mean Corpuscular Hemoglobin Concent 32.9g/dl (32.0-37.0) 32.6g/dl (32.0-37.0) Red Cell Distribution Width 14.7% (11.5-14.5) H 14.6% (11.5-14.5) H Platelet Count 47797^3/UL (140-415) 98871^3/UL (140-415) Mean Platelet Volume 9.9fl (7.4-10.4) 10.0fl (7.4-10.4) Neutrophils % 60.2% (39.0-77.0) 87.8% (39.0-77.0) H Lymphocytes % 24.9% (15.0-51.0) 6.3% (15.0-51.0) L Monocytes % 10.6% (0.0-11.0) 4.6% (0.0-11.0) Eosinophils % 1.5% (0.0-7.0) 0.0% (0.0-7.0) Basophils % 0.3% (0.0-2.0) 0.2% (0.0-2.0) Nucleated Red Blood Cells % 0.0/100WBC (0.0-0.0) 0.0/100WBC (0.0-0.0) Neutrophils # 7.110^3/ul (1.6-7.5) 15.810^3/ul (1.6-7.5) H Lymphocytes # 3.010^3/ul (0.8-2.9) H 1.110^3/ul (0.8-2.9) Monocytes # 1.310^3/ul (0.3-0.9) H 0.810^3/ul (0.3-0.9) Eosinophils # 0.210^3/ul (0.0-0.5) 0.010^3/ul (0.0-0.5) Basophils # 0.010^3/ul (0.0-0.1) 0.010^3/ul (0.0-0.1) Nucleated Red Blood Cells # 0.010^3/ul (0.0-0.0) 0.010^3/ul (0.0-0.0) OB Assessment/Plan Other Assessment: Status post section. Postop day #1 Leukocytosis. Likely related to labor. No evidence of infection. We will watch closely. Plan: Expectant Management Other plan: Routine postop care. CHRISTIN GIBBS MD February 08, 2017 14:38
[2017-02-08 15:25] VITALS: BP 119/58; RESP 19
[2017-02-08] MEDS: IBUPROFEN 800 MG TAB PO SCH ×2 (17:26→23:56)
[2017-02-08 19:55] VITALS: BP 126/50; PULSE 76; RESP 18
[2017-02-09 04:25] VITALS: BP 130/71; PULSE 70; RESP 16
[2017-02-09] MEDS: IBUPROFEN 800 MG TAB PO SCH ×4 (06:06→23:48)
[2017-02-09 06:54] LABS: ADD SCAN DIFF NO
[2017-02-09 07:02] LABS: BASOPHILS % 0.2 % (0.0-2.0); EOSINOPHILS # 0.2 10^3/ul (0.0-0.5); EOSINOPHILS % 1.7 % (0.0-7.0); HEMATOCRIT 38.8 % (37.0-47.0); HEMOGLOBIN 12.5 g/dl (12.0-16.0); LYMPHOCYTES # 2.6 10^3/ul (0.8-2.9); LYMPHOCYTES % 27.4 % (15.0-51.0); MEAN CORPUSCULAR HEMOGLOBIN 30.9 pg (29.0-33.0); MEAN CORPUSCULAR HGB CONC 32.2 g/dl (32.0-37.0); MEAN CORPUSCULAR VOLUME 95.8 fl (82.0-101.0); MEAN PLATELET VOLUME 9.6 fl (7.4-10.4); MONOCYTE # 0.9 10^3/ul (0.3-0.9); MONOCYTES % 9.5 % (0.0-11.0); NEUTROPHIL # 5.7 10^3/ul (1.6-7.5); PLATELET COUNT 249 10^3/UL (140-415); RED BLOOD COUNT 4.05 10^6/ul (4.20-5.40); RED CELL DISTRIBUTION WIDTH 14.8 % (11.5-14.5); WHITE BLOOD COUNT 9.5 10^3/ul (4.8-10.8)
[2017-02-09 07:30] VITALS: BP 119/65; PULSE 81; RESP 18
[2017-02-09] MEDS: SENNA/DOCUSATE NA (8.6MG/50MG) TAB PO SCH ×2 (10:10→20:55)
--- NOTE | 2017-02-09 10:11 | PN ---
Date/Time of Note Date/Time of Note DATE: 02/09/17 TIME: 10:09 OB Subjective Subjective Subjective Laboratory Tests Test 02/09/17 06:37 White Blood Count 9.510^3/ul Red Blood Count 4.0510^6/ul Hemoglobin 12.5g/dl Hematocrit 38.8% Mean Corpuscular Volume 95.8fl Mean Corpuscular Hemoglobin 30.9pg Mean Corpuscular Hemoglobin Concent 32.2g/dl Red Cell Distribution Width 14.8% Platelet Count 93985^3/UL Mean Platelet Volume 9.6fl Neutrophils % 60.0% Lymphocytes % 27.4% Monocytes % 9.5% Eosinophils % 1.7% Basophils % 0.2% Nucleated Red Blood Cells % 0.0/100WBC Neutrophils # 5.710^3/ul Lymphocytes # 2.610^3/ul Monocytes # 0.910^3/ul Eosinophils # 0.210^3/ul Basophils # 0.010^3/ul Nucleated Red Blood Cells # 0.010^3/ul Current Medications Medications (Trade) Dose Ordered Sig/Baron Route PRN Reason Start Time Stop Time Status Last Admin Dose Admin Acetaminophen 1000 mg 1,000 mg ONCE STAT PO 02/06/17 21:42 02/06/17 22:31 DC Lactated Ringer's 1,000 ml @ 125 mls/hr Q8H IV 02/06/17 22:02 02/08/17 15:14 DC 02/06/17 22:44 Cefazolin Sodium/ Dextrose 50 ml @ 100 mls/hr ONCE IV 02/06/17 22:30 02/06/17 23:19 Oxytocin/Lactated Ringer's 500 ml @ 125 mls/hr ONCE IV 02/06/17 22:30 Oxytocin/Lactated Ringer's 500 ml @ 0 mls/hr ONCE PRN IV For Hemorrhage Management 02/06/17 22:30 02/08/17 15:14 DC Methylergonovine Maleate (Methergine) 0.2 mg ONCE PRN IM VAGINAL BLEEDING 02/06/17 22:30 02/08/17 15:14 DC Carboprost Tromethamine (Hemabate) 250 mcg ONCE PRN IM VAGINAL BLEEDING 02/06/17 22:30 02/08/17 15:14 DC Misoprostol (Cytotec) 1,000 mcg ONCE PRN GA VAGINAL BLEEDING 02/06/17 22:30 02/08/17 15:14 DC Morphine Sulfate (Duramorph) 10 mg STK-MED ONCE .ROUTE 02/06/17 22:51 02/06/17 22:52 DC Phenylephrine HCl (Asher-Synephrine Inj Syg) 500 mcg STK-MED ONCE .ROUTE 02/06/17 22:51 02/06/17 22:52 DC Ondansetron HCl (Zofran Inj) 4 mg STK-MED ONCE .ROUTE 02/06/17 22:51 02/06/17 22:52 DC Metoclopramide HCl (Reglan) 10 mg STK-MED ONCE .ROUTE 02/06/17 22:51 02/06/17 22:52 DC Oxytocin (Oxytocin) 10 units STK-MED ONCE .ROUTE 02/06/17 22:51 02/06/17 22:52 DC Ketorolac Tromethamine (Toradol) 30 mg STK-MED ONCE .ROUTE 02/06/17 22:51 02/06/17 22:52 DC Dexamethasone (Decadron) 4 mg STK-MED ONCE .ROUTE 02/06/17 22:51 02/06/17 22:52 DC Ondansetron HCl (Zofran Inj) 4 mg Q4H PRN IV NAUSEA AND/OR VOMITING 02/06/17 23:00 02/08/17 15:14 DC 02/06/17 23:17 Citric Acid/ Sodium Citrate (Bicitra) 30 ml ONCE ONCE PO 02/06/17 23:00 02/06/17 23:01 DC 02/06/17 23:17 Metoclopramide HCl (Reglan) 10 mg ONCE ONCE IV 02/06/17 23:00 02/06/17 23:01 DC 02/06/17 23:17 Hydromorphone HCl (Dilaudid) 0.2 mg Q2H PRN IV PAIN LEVEL 1-5 02/07/17 00:00 Hydromorphone HCl (Dilaudid) 0.4 mg Q2H PRN IV PAIN LEVEL 6-10 02/07/17 00:00 Morphine Sulfate (morphine) 2 mg Q2H PRN IV PAIN LEVEL 1-5 02/07/17 00:00 Morphine Sulfate (morphine) 4 mg Q2H PRN IV PAIN LEVEL 6-10 02/07/17 00:00 Ketorolac Tromethamine (Toradol) 30 mg Q6H PRN IV PAIN LEVEL 6-10 02/07/17 00:00 02/07/17 17:59 DC 02/07/17 11:17 Acetaminophen (Tylenol Tab) 500 mg Q4H PRN PO PAIN LEVEL 1-3 02/07/17 00:00 Acetaminophen/ Hydrocodone Bitart (Tebbetts (5/325)) 1 tab Q4H PRN PO PAIN LEVEL 4-6 02/07/17 00:00 Diphenhydramine HCl (Benadryl) 25 mg Q4H PRN IV PRURITUS 02/07/17 00:00 Nalbuphine HCl (Nubain) 10 mg Q4H PRN IV PRURITUS 02/07/17 00:00 Ondansetron HCl (Zofran Inj) 4 mg Q6H PRN IV NAUSEA AND/OR VOMITING 02/07/17 00:00 02/08/17 15:15 DC 02/07/17 05:29 Naloxone HCl (Narcan) 0.2 mg Q2M PRN IV FOR RESP RATE 8 OR LESS 02/07/17 00:00 Miscellaneous Information (* Miscellaneous Pharmacy Order) DURAMORPH: 0.2 MG SPI... GIVEN NEURAXIAL XX 02/07/17 00:00 Oxytocin (Oxytocin) 10 units STK-MED ONCE .ROUTE 02/07/17 00:19 02/07/17 00:20 DC Oxytocin 10 units 10 units STK-MED ONCE .ROUTE 02/07/17 00:19 02/07/17 00:20 DC Lactated Ringer's 1,000 ml @ 125 mls/hr Q8H IV 02/07/17 01:50 02/07/17 18:16 Cefazolin Sodium 50 ml @ 100 mls/hr Q8H IV 02/07/17 02:00 02/07/17 18:29 DC 02/07/17 18:56 Oxytocin/Lactated Ringer's 500 ml @ 125 mls/hr Q4H IV 02/07/17 01:50 02/07/17 09:49 DC 02/07/17 14:17 Oxycodone/ Acetaminophen (Percocet (5/ 325)) 1 tab Q4H PRN PO PAIN LEVEL 4-6 02/07/17 02:00 Oxycodone/ Acetaminophen (Percocet (5/ 325)) 2 tab Q4H PRN PO PAIN LEVEL 7-10 02/07/17 02:00 Ibuprofen (Motrin) 800 mg Q8 PRN PO PAIN 02/07/17 02:00 02/08/17 15:12 DC 02/08/17 08:51 Simethicone (Mylicon) 160 mg Q8H PRN PO DISTENSION/GAS/BLOATING 02/07/17 02:00 Senna/Docusate Sodium (Senokot-S) 1 tab BID PO 02/07/17 09:00 02/08/17 21:14 Lanolin 1 applic 1 applic BEDSIDE MEDICATION PRN TOP BEDSIDE FOR JAMISON TO NIPPLES 02/07/17 02:00 02/08/17 08:52 Oxytocin/Lactated Ringer's 500 ml @ 0 mls/hr ONCE PRN IV For Hemorrhage Management 02/07/17 02:00 Methylergonovine Maleate (Methergine) 0.2 mg ONCE PRN IM VAGINAL BLEEDING 02/07/17 02:00 Carboprost Tromethamine (Hemabate) 250 mcg ONCE PRN IM VAGINAL BLEEDING 02/07/17 02:00 Misoprostol (Cytotec) 1,000 mcg ONCE PRN GA VAGINAL BLEEDING 02/07/17 02:00 Ondansetron HCl (Zofran Inj) 4 mg Q6H PRN IV NAUSEA AND/OR VOMITING 02/07/17 03:00 Ketorolac Tromethamine (Toradol) 30 mg Q6H PRN IV PAIN LEVEL 6-10 02/07/17 18:00 02/10/17 17:59 02/07/17 23:17 Ibuprofen (Motrin) 800 mg Q6 PO 02/08/17 18:00 02/09/17 06:06 February 09, 2017 day 2 Post C Section day 2 Patient is doing well, Ambulatory She is afebrile Abdoman is soft , Fundus is firm Incision is clean Moderate amount of locha Breasts are soft, Nipples are intact No calf tenderness. No ankle edema Breast feeding the new born. New born is doing well Post C Section day 2 Doing Well Afebrile Amblatoty Chest Clear Brests are soft , Nipples are intact Abdoman is soft Fundus is firm Moderate amounte of lochea Incision is clean ,No evidence of infection No calf tenderness No ankle edema New born is doing well, Brest feeding Laboratory Tests Test 02/09/17 06:37 White Blood Count 9.510^3/ul Red Blood Count 4.0510^6/ul Hemoglobin 12.5g/dl Hematocrit 38.8% Mean Corpuscular Volume 95.8fl Mean Corpuscular Hemoglobin 30.9pg Mean Corpuscular Hemoglobin Concent 32.2g/dl Red Cell Distribution Width 14.8% Platelet Count 64035^3/UL Mean Platelet Volume 9.6fl Neutrophils % 60.0% Lymphocytes % 27.4% Monocytes % 9.5% Eosinophils % 1.7% Basophils % 0.2% Nucleated Red Blood Cells % 0.0/100WBC Neutrophils # 5.710^3/ul Lymphocytes # 2.610^3/ul Monocytes # 0.910^3/ul Eosinophils # 0.210^3/ul Basophils # 0.010^3/ul Nucleated Red Blood Cells # 0.010^3/ul Current Medications Medications (Trade) Dose Ordered Sig/Baron Route PRN Reason Start Time Stop Time Status Last Admin Dose Admin Acetaminophen 1000 mg 1,000 mg ONCE STAT PO 02/06/17 21:42 02/06/17 22:31 DC Lactated Ringer's 1,000 ml @ 125 mls/hr Q8H IV 02/06/17 22:02 02/08/17 15:14 DC 02/06/17 22:44 Cefazolin Sodium/ Dextrose 50 ml @ 100 mls/hr ONCE IV 02/06/17 22:30 02/06/17 23:19 Oxytocin/Lactated Ringer's 500 ml @ 125 mls/hr ONCE IV 02/06/17 22:30 Oxytocin/Lactated Ringer's 500 ml @ 0 mls/hr ONCE PRN IV For Hemorrhage Management 02/06/17 22:30 02/08/17 15:14 DC Methylergonovine Maleate (Methergine) 0.2 mg ONCE PRN IM VAGINAL BLEEDING 02/06/17 22:30 02/08/17 15:14 DC Carboprost Tromethamine (Hemabate) 250 mcg ONCE PRN IM VAGINAL BLEEDING 02/06/17 22:30 02/08/17 15:14 DC Misoprostol (Cytotec) 1,000 mcg ONCE PRN GA VAGINAL BLEEDING 02/06/17 22:30 02/08/17 15:14 DC Morphine Sulfate (Duramorph) 10 mg STK-MED ONCE .ROUTE 02/06/17 22:51 02/06/17 22:52 DC Phenylephrine HCl (Asher-Synephrine Inj Syg) 500 mcg STK-MED ONCE .ROUTE 02/06/17 22:51 02/06/17 22:52 DC Ondansetron HCl (Zofran Inj) 4 mg STK-MED ONCE .ROUTE 02/06/17 22:51 02/06/17 22:52 DC Metoclopramide HCl (Reglan) 10 mg STK-MED ONCE .ROUTE 02/06/17 22:51 02/06/17 22:52 DC Oxytocin (Oxytocin) 10 units STK-MED ONCE .ROUTE 02/06/17 22:51 02/06/17 22:52 DC Ketorolac Tromethamine (Toradol) 30 mg STK-MED ONCE .ROUTE 02/06/17 22:51 02/06/17 22:52 DC Dexamethasone (Decadron) 4 mg STK-MED ONCE .ROUTE 02/06/17 22:51 02/06/17 22:52 DC Ondansetron HCl (Zofran Inj) 4 mg Q4H PRN IV NAUSEA AND/OR VOMITING 02/06/17 23:00 02/08/17 15:14 DC 02/06/17 23:17 Citric Acid/ Sodium Citrate (Bicitra) 30 ml ONCE ONCE PO 02/06/17 23:00 02/06/17 23:01 DC 02/06/17 23:17 Metoclopramide HCl (Reglan) 10 mg ONCE ONCE IV 02/06/17 23:00 02/06/17 23:01 DC 02/06/17 23:17 Hydromorphone HCl (Dilaudid) 0.2 mg Q2H PRN IV PAIN LEVEL 1-5 02/07/17 00:00 Hydromorphone HCl (Dilaudid) 0.4 mg Q2H PRN IV PAIN LEVEL 6-10 02/07/17 00:00 Morphine Sulfate (morphine) 2 mg Q2H PRN IV PAIN LEVEL 1-5 02/07/17 00:00 Morphine Sulfate (morphine) 4 mg Q2H PRN IV PAIN LEVEL 6-10 02/07/17 00:00 Ketorolac Tromethamine (Toradol) 30 mg Q6H PRN IV PAIN LEVEL 6-10 02/07/17 00:00 02/07/17 17:59 DC 02/07/17 11:17 Acetaminophen (Tylenol Tab) 500 mg Q4H PRN PO PAIN LEVEL 1-3 02/07/17 00:00 Acetaminophen/ Hydrocodone Bitart (Tebbetts (5/325)) 1 tab Q4H PRN PO PAIN LEVEL 4-6 02/07/17 00:00 Diphenhydramine HCl (Benadryl) 25 mg Q4H PRN IV PRURITUS 02/07/17 00:00 Nalbuphine HCl (Nubain) 10 mg Q4H PRN IV PRURITUS 02/07/17 00:00 Ondansetron HCl (Zofran Inj) 4 mg Q6H PRN IV NAUSEA AND/OR VOMITING 02/07/17 00:00 02/08/17 15:15 DC 02/07/17 05:29 Naloxone HCl (Narcan) 0.2 mg Q2M PRN IV FOR RESP RATE 8 OR LESS 02/07/17 00:00 Miscellaneous Information (* Miscellaneous Pharmacy Order) DURAMORPH: 0.2 MG SPI... GIVEN NEURAXIAL XX 02/07/17 00:00 Oxytocin (Oxytocin) 10 units STK-MED ONCE .ROUTE 02/07/17 00:19 02/07/17 00:20 DC Oxytocin 10 units 10 units STK-MED ONCE .ROUTE 02/07/17 00:19 02/07/17 00:20 DC Lactated Ringer's 1,000 ml @ 125 mls/hr Q8H IV 02/07/17 01:50 02/07/17 18:16 Cefazolin Sodium 50 ml @ 100 mls/hr Q8H IV 02/07/17 02:00 02/07/17 18:29 DC 02/07/17 18:56 Oxytocin/Lactated Ringer's 500 ml @ 125 mls/hr Q4H IV 02/07/17 01:50 02/07/17 09:49 DC 02/07/17 14:17 Oxycodone/ Acetaminophen (Percocet (5/ 325)) 1 tab Q4H PRN PO PAIN LEVEL 4-6 02/07/17 02:00 Oxycodone/ Acetaminophen (Percocet (5/ 325)) 2 tab Q4H PRN PO PAIN LEVEL 7-10 02/07/17 02:00 Ibuprofen (Motrin) 800 mg Q8 PRN PO PAIN 02/07/17 02:00 02/08/17 15:12 DC 02/08/17 08:51 Simethicone (Mylicon) 160 mg Q8H PRN PO DISTENSION/GAS/BLOATING 02/07/17 02:00 Senna/Docusate Sodium (Senokot-S) 1 tab BID PO 02/07/17 09:00 02/08/17 21:14 Lanolin 1 applic 1 applic BEDSIDE MEDICATION PRN TOP BEDSIDE FOR JAMISON TO NIPPLES 02/07/17 02:00 02/08/17 08:52 Oxytocin/Lactated Ringer's 500 ml @ 0 mls/hr ONCE PRN IV For Hemorrhage Management 02/07/17 02:00 Methylergonovine Maleate (Methergine) 0.2 mg ONCE PRN IM VAGINAL BLEEDING 02/07/17 02:00 Carboprost Tromethamine (Hemabate) 250 mcg ONCE PRN IM VAGINAL BLEEDING 02/07/17 02:00 Misoprostol (Cytotec) 1,000 mcg ONCE PRN GA VAGINAL BLEEDING 02/07/17 02:00 Ondansetron HCl (Zofran Inj) 4 mg Q6H PRN IV NAUSEA AND/OR VOMITING 02/07/17 03:00 Ketorolac Tromethamine (Toradol) 30 mg Q6H PRN IV PAIN LEVEL 6-10 02/07/17 18:00 02/10/17 17:59 02/07/17 23:17 Ibuprofen (Motrin) 800 mg Q6 PO 02/08/17 18:00 02/09/17 06:06 PINEDA POWELL MD Feb 09, 2017 10:11
[2017-02-09] MEDS ORDERED: NA PHOSPHATE/BIPHOS 133 ML ENEMA PR ONE (11:00)
[2017-02-09 15:20] VITALS: BP 118/63; PULSE 74; RESP 20
[2017-02-09 19:25] VITALS: BP 122/71; PULSE 75; RESP 18
[2017-02-10 04:00] VITALS: BP 125/58; PULSE 79; RESP 18
[2017-02-10] MEDS: IBUPROFEN 800 MG TAB PO SCH ×3 (06:00→17:33)
[2017-02-10 07:30] VITALS: BP 128/69; PULSE 78; RESP 19
[2017-02-10] MEDS: SENNA/DOCUSATE NA (8.6MG/50MG) TAB PO SCH (09:00)
--- NOTE | 2017-02-10 13:53 | DS ---
Date/Time of Note Date/Time of Note DATE: 02/10/17 TIME: 13:53 Discharge Summary Admission/Discharge Info Admit Date/Time February 06, 2017 at 22:05 Discharge Date/Time Final Diagnosis term preg Patient Condition: Stable Hospital Course unremarkable Home Meds Reported Medications Calcium (Calcium) 500 Mg Tablet, 500 MG PO DAILY 10/23/11 Iron (Iron) 18 Mg Tablet, 18 MG PO DAILY 10/23/11 Vits W-Ca,Fe,Fa(<1MG) () 1 Tab Tablet, 1 TAB PO DAILY 10/23/11 Primary Care Provider Care Physician No Primary ELISA HERRON MD Feb 10, 2017 13:53
[2017-02-10 14:42] LABS: ADD UMIC YES; URINE BILIRUBIN (Dip) NEGATIVE (NEGATIVE); URINE BLOOD (Dip) 3+ (NEGATIVE); URINE COLOR LT. YELLOW (YELLOW); URINE GLUCOSE (Dip) NEGATIVE (NEGATIVE); URINE KETONES (Dip) NEGATIVE (NEGATIVE); URINE LEUKOCYTE ESTERASE (Dip) 1+ (NEGATIVE); URINE NITRITE (Dip) NEGATIVE (NEGATIVE); URINE TOTAL PROTEIN (Dip) NEGATIVE (NEGATIVE); URINE UROBILINOGEN (Dip) 0.2 E.U./dL (0.1-1.0)
[2017-02-10 15:34] LABS: BACTERIA,URINE FEW; SQUAMOUS EPITHELIAL CELL,UR MODERATE; URINE RBCS >50 /HPF (0)
[2017-02-10 16:00] VITALS: BP 123/65; PULSE 72; RESP 18
== END 2017-02-10 18:10 | disposition home or self-care (01) | DRG 765 ==
LOC: OBT 20:59 → L-D 21:00 → OBT 22:05 → L-D 22:05 → PP1 02-07 03:21
PROVIDERS: ADMIT Obstetrics & Gynecology; ATTEND Obstetrics & Gynecology
PROC: 10D00Z1 Extraction of Products of Conception, Low, Open Approach (ICD-10-PCS; principal; 2017-02-07 00:15)
DX: O32.1XX0 Maternal care for breech presentation, not applicable or unspecified (principal); O41.03X0 Oligohydramnios, third trimester, not applicable or unspecified; O76 Abnormality in fetal heart rate and rhythm complicating labor and delivery; Z3A.37 37 weeks gestation of pregnancy; Z37.0 Single live birth
CPT/HCPCS: 76818; 80307; 81001; 85025; 85610; 85730; 86592; 86703; 86850; 86900; 86901; 87340; 94760; 99464; G0463; J0690; J1100; J1885; J2274; J2370; J2405; J2590; J2765; J7120

== ENCOUNTER 2017-04-05 09:54 | Emergency (ER) | payer MEDICAID, OTHER ==
[~2017-04-05] VITALS: Ht 149.9 cm; Wt 62.0 kg
[~2017-04-05 09:54] MED LIST changes: -CALC-600 PO
[2017-04-05 09:57] VITALS: Ht 149.9 cm; Wt 62.0 kg
[2017-04-05] MEDS ORDERED: ONDANSETRON 4 MG INJ IV STA (10:33)
[2017-04-05] MEDS ORDERED: SOD CHLORIDE 0.9% 1,000 ML IV STA (10:33)
[2017-04-05] MEDS ORDERED: FAMOTIDINE 20 MG TAB PO STA (10:33)
[2017-04-05 11:03] LABS: BASOPHILS % 0.4 % (0.0-2.0); EOSINOPHILS # 0.1 10^3/ul (0.0-0.5); EOSINOPHILS % 1.4 % (0.0-7.0); HEMATOCRIT 45.1 % (37.0-47.0); HEMOGLOBIN 15.3 g/dl (12.0-16.0); LYMPHOCYTES # 2.3 10^3/ul (0.8-2.9); LYMPHOCYTES % 22.6 % (15.0-51.0); MEAN CORPUSCULAR HEMOGLOBIN 29.5 pg (29.0-33.0); MEAN CORPUSCULAR HGB CONC 33.9 g/dl (32.0-37.0); MEAN CORPUSCULAR VOLUME 86.9 fl (82.0-101.0); MEAN PLATELET VOLUME 10.6 fl (7.4-10.4); MONOCYTE # 0.6 10^3/ul (0.3-0.9); MONOCYTES % 5.4 % (0.0-11.0); NEUTROPHIL # 7.2 10^3/ul (1.6-7.5); NEUTROPHILS % 69.8 % (39.0-77.0); PLATELET COUNT 271 10^3/UL (140-415); RED BLOOD COUNT 5.19 10^6/ul (4.20-5.40); RED CELL DISTRIBUTION WIDTH 12.8 % (11.5-14.5); WHITE BLOOD COUNT 10.2 10^3/ul (4.8-10.8)
[2017-04-05 11:13] LABS: ADD UMIC YES; UR ASCORBIC ACID NEGATIVE (NEGATIVE); UR BACTERIA FEW /HPF (NONE SEEN); UR BILIRUBIN (Dip) NEGATIVE (NEGATIVE); UR BLOOD (Dip) 1+ mg/dL (NEGATIVE); UR CLARITY CLEAR (CLEAR); UR COLOR YELLOW (YELLOW); UR GLUCOSE (Dip) NEGATIVE (NEGATIVE); UR KETONES (Dip) NEGATIVE (NEGATIVE); UR LEUKOCYTE ESTERASE (Dip) NEGATIVE Leu/ul (NEGATIVE); UR NITRITE (Dip) NEGATIVE (NEGATIVE); UR RBC 0 /HPF (0-5); UR SPECIFIC GRAVITY (Dip) 1.014 (1.003-1.030); UR TOTAL PROTEIN (Dip) NEGATIVE (NEGATIVE); UR UROBILINOGEN (Dip) NEGATIVE (NEGATIVE)
[2017-04-05 11:24] LABS: ALBUMIN 4.7 g/dl (3.3-4.9); ALBUMIN/GLOBULIN RATIO 1.17; BILIRUBIN,INDIRECT 0.3 mg/dl (0-1.1); BILIRUBIN,TOTAL 0.3 mg/dl (0.2-1.3); CALCIUM 9.9 mg/dl (8.4-10.2); CREATININE 0.53 mg/dl (0.44-1.00); POTASSIUM 4.1 mmol/L (3.5-5.1); TOTAL PROTEIN 8.7 g/dl (6.1-8.1)
--- NOTE | 2017-04-05 11:26 | RADRPT ---
PROCEDURE: US Abdomen (right upper quadrant). CLINICAL INDICATION: Abdominal pain. TECHNIQUE: Multiple real-time longitudinal and transverse images of the right upper quadrant of th e abdomen were acquired utilizing a curved array transducer. Images were reviewed on a high-resoluti on PACS workstation. COMPARISON: Abdominal ultrasound from 08/30/2016. FINDINGS: The liver is normal in size and echotexture without focal mass or intrahepatic biliary dilatation. There is normal hepatopedal flow within the main portal vein. The gallbladder is remarkable for mul tiple small echogenic, shadowing calculi. The common bile duct measures 6.9 mm in maximal dimension . The visualized portions of the pancreas are unremarkable with obscuration of the tail of the panc reas. No free fluid is identified. The right kidney measures 8.8 cm in length. There is normal echogenicity within the right kidney. There is no perinephric fluid collection. No hydronephrosis, mass, or calculus is seen. IMPRESSION: 1. Cholelithiasis with borderline prominent common bile duct at 6.9 mm. If there is high clinical s uspicion for acute cholecystitis, consider hepatobiliary scanning in further evaluation. RPTAT: [facility] Physician Donna Date Time Electronically viewed and signed by Physician Donna on 04/05/2017 11:25 [email or web address]/
[2017-04-05] MEDS ORDERED: IBUP400T22 PO (11:57)
[2017-04-05 12:17] VITALS: BP 120/78; PULSE 70; RESP 17
--- NOTE | 2017-04-05 16:01 | ERD ---
ER Documentation Chief Complaint Date/Time DATE: 04/05/17 TIME: 15:58 Chief Complaint 7 chest and back pain x this am HPI This is a 21-year-old female presenting to the emergency department complaining of epigastric pain that occurred suddenly at 2 AM while she was breast-feeding. Patient describes the pain 7 out of 10, located in the epigastric region that radiates to the back describes as intermittently and sharp. Patient associates it with nausea with one episode of nonbilious nonbloody vomiting. She denies any fevers, diarrhea. Patient states that she has been constipated recently and was given a stool softener which she took that yesterday and had a bowel movement. Patient denies taking any medications for this ROS All systems reviewed and are negative except as per history of present illness. Medications Home Meds Active Scripts Ibuprofen* (Ibuprofen*) 400 Mg Tablet, 400 MG PO Q6H Y for PAIN, #30 TAB Prov:SHYAM WYLIE PA-C 04/05/17 Reported Medications Iron (Iron) 18 Mg Tablet, 18 MG PO DAILY 10/23/11 Vits W-Ca,Fe,Fa(<1MG) () 1 Tab Tablet, 1 TAB PO DAILY 10/23/11 Allergies Allergies: Coded Allergies: No Known Allergies (Verified Allergy, Unknown, 04/05/17) PMhx/Soc History of Surgery: Yes ( x 3) Anesthesia Reaction: No Hx Neurological Disorder: No Hx Respiratory Disorders: No Hx Cardiac Disorders: No Hx Psychiatric Problems: No Hx Miscellaneous Medical Probl: No Hx Alcohol Use: No Hx Substance Use: No Hx Tobacco Use: No Physical Exam Vitals Vital Signs Date Time Temp Pulse Resp B/P Pulse Ox O2 Delivery O2 Flow Rate FiO2 04/05/17 12:17 70 17 120/78 100 Room Air 04/05/17 09:57 98.2 72 18 131/66 98 Physical Exam GENERAL: well-developed/well-nourished, in no apparent distress, non-toxic appearing HENT: NC/AT, moist mucous membranes EYES: Conjunctiva normal NECK: Supple, no lymphadenopathy PULM: CTA bilaterally, no rales, rhonchi, or wheezing heard CV: Normal S1S2, RRR, good capillary refill GI: Soft, non-distended, tender to palpation in the epigastric region Normal bowel sounds, no masses or organomegaly felt on exam No gross peritonitis, no bruits Negative Rovsing, negative Connelly, negative McBurney's point, Negative CVAT BACK: No masses EXT: No clubbing, cyanosis, or edema NEURO: Alert and Orientated SKIN: Intact, normal turgor PSYCH: Normal mood and mentation Result Diagram: 04/05/17 1050 04/05/17 1050 Results 24 hrs Laboratory Tests Test 04/05/17 10:45 04/05/17 10:50 Urine Color YELLOW Urine Clarity CLEAR Urine pH 7.0 Urine Specific [place] 1.014 Urine Ketones NEGATIVEmg/dL Urine Nitrite NEGATIVEmg/dL Urine Bilirubin NEGATIVEmg/dL Urine Urobilinogen NEGATIVEmg/dL Urine Leukocyte Esterase NEGATIVELeu/ul Urine Microscopic RBC 0/HPF Urine Microscopic WBC 1/HPF Urine Bacteria FEW/HPF Urine Hemoglobin 1+mg/dL Urine Glucose NEGATIVEmg/dL Urine Total Protein NEGATIVEmg/dl White Blood Count 10.210^3/ul Red Blood Count 5.1910^6/ul Hemoglobin 15.3g/dl Hematocrit 45.1% Mean Corpuscular Volume 86.9fl Mean Corpuscular Hemoglobin 29.5pg Mean Corpuscular Hemoglobin Concent 33.9g/dl Red Cell Distribution Width 12.8% Platelet Count 38805^3/UL Mean Platelet Volume 10.6fl Neutrophils % 69.8% Lymphocytes % 22.6% Monocytes % 5.4% Eosinophils % 1.4% Basophils % 0.4% Nucleated Red Blood Cells % 0.0/100WBC Neutrophils # 7.210^3/ul Lymphocytes # 2.310^3/ul Monocytes # 0.610^3/ul Eosinophils # 0.110^3/ul Basophils # 0.010^3/ul Nucleated Red Blood Cells # 0.010^3/ul Sodium Level 146mmol/L Potassium Level 4.1mmol/L Chloride Level 100mmol/L Carbon Dioxide Level 26mmol/L Anion Gap 24 Blood Urea Nitrogen 10mg/dl Creatinine 0.53mg/dl Glucose Level 95mg/dl Calcium Level 9.9mg/dl Total Bilirubin 0.3mg/dl Direct Bilirubin 0.00mg/dl Indirect Bilirubin 0.3mg/dl Aspartate Amino Transf (AST/SGOT) 54IU/L Alanine Aminotransferase (ALT/SGPT) 58IU/L Alkaline Phosphatase 118IU/L Total Protein 8.7g/dl Albumin 4.7g/dl Globulin 4.00g/dl Albumin/Globulin Ratio 1.17 Lipase 135U/L Current Medications Medications (Trade) Dose Ordered Sig/Baron Route PRN Reason Start Time Stop Time Status Last Admin Dose Admin Sodium Chloride (NS) 1,000 ml @ 1,000 mls/hr Q1H STAT IV 04/05/17 10:33 04/05/17 11:41 DC 04/05/17 10:55 Ondansetron HCl (Zofran Inj) 4 mg ONCE STAT IV 04/05/17 10:33 04/05/17 10:36 DC 04/05/17 10:51 Famotidine (Pepcid) 20 mg ONCE STAT PO 04/05/17 10:33 04/05/17 10:36 DC 04/05/17 10:51 Procedures/MDM 21-year-old female presents to the emergency department complaining of epigastric pain that radiates to the back likely due to cholelithiasis without evidence of cholangitis, cholecystitis, pancreatitis, sepsis. Patient is afebrile, nontoxic-appearing and stable to be discharged home with strict precautions to return to the emergency department for any worsening signs and symptoms or not improving as expected, and to follow-up with Dr. Potter as an outpatient for cholecystectomy. IV access was established, patient was given 1 L fluids. CBC did not show evidence of leukocytosis or anemia. CMP did not show any evidence of significant liver, renal or electrolyte abnormalities. Urinalysis is unremarkable. Lipase was normal. Gallbladder ultrasound was done and showed gallstones with borderline prominent common bile duct at 6.9 mm , I have discussed this with my supervising physician Dr. Charlton in which stated that patient is suitable to be discharged home. Patient was given prescription for ibuprofen for pain since she is breast-feeding. Discussed with her to follow-up with Dr. Potter Discussed return the ER for any worsening signs this patient understands and agrees with plan Gallbladder US: Cholelithiasis with borderline prominent common bile duct at 6.9 mm. If there is high clinical suspicion for acute cholecystitis, consider hepatobiliary scanning in further evaluation. Departure Diagnosis: Primary Impression: Gallstones Additional Impression: Common bile duct dilatation Condition: Stable Patient Instructions: What Are Gallstones?, Treating Gallstones, Gallstones Referrals: BOY POTTER M.D. Additional Instructions: FOLLOW UP WITH YOUR PRIMARY CARE PHYSICIAN TOMORROW.Return to this facility if you are not improving as expected. Take all medicines as directed. Return to this facility if you are not improving as expected. SHYAM WYLIE PA-C Apr 05, 2017 16:01
== END 2017-04-05 12:18 | disposition home or self-care (01) ==
LOC: FTE 09:54
DX: K80.20 Calculus of gallbladder without cholecystitis without obstruction (principal); K83.8 Other specified diseases of biliary tract; R11.2 Nausea with vomiting, unspecified
CPT/HCPCS: 36415; 76705; 80053; 81001; 83690; 85025; 93005; 96374; J2405; J7030; Z7502; Z7610